=== PATIENT | male | born 1930 | race Caucasian/White ===

== ENCOUNTER 2018-07-19 12:06 | Inpatient (IN) ==
--- NOTE | 2018-07-19 07:59 | Discharge Summary ---
<Bud Parikh - Last Filed: 07/24/18 06:40> Orders not resulted at time of discharge: Pending orders 07/19/18 00:01 XR hip complete LT [XR] Routine H/H [Hemoglobin and Hematocrit] [HEME] Routine Date of Encounter: 07/24/18 - Discharge Diagnosis (1) CAD (coronary artery disease) Priority: Secondary Status: Chronic Qualifiers: Coronary Disease-Associated Artery/Lesion type: [place] artery [place] vs. transplanted heart: hamilton heart Associated angina: without angina Qualified Code(s): I25.10 - Atherosclerotic heart disease of [place] coronary artery without angina pectoris (2) COPD (chronic obstructive pulmonary disease) Priority: Secondary Status: Chronic Qualifiers: COPD type: chronic bronchitis Chronic bronchitis type: unspecified Qualified Code(s): J42 - Unspecified chronic bronchitis (3) Chronic pain Priority: Secondary Status: Chronic Qualifiers: Chronic pain type: other chronic pain Qualified Code(s): G89.29 - Other chronic pain (4) HLD (hyperlipidemia) Priority: Secondary Status: Chronic Qualifiers: Hyperlipidemia type: unspecified Qualified Code(s): E78.5 - Hyperlipidemia , unspecified (5) HTN (hypertension) Priority: Secondary Status: Chronic Qualifiers: Hypertension type: essential hypertension Qualified Code(s): I10 - Essential (primary) hypertension (6) Acute myocardial infarction Priority: Primary Status: Acute Qualifiers: Myocardial infarction type: unspecified Involved coronary artery: unspecified coronary artery Qualified Code(s): I21.9 - Acute myocardial infarction, unspecified (7) S/P coronary artery stent placement Priority: Primary Status: Acute (8) Acute respiratory failure with hypoxia Priority: Primary Status: Acute (9) Elevated troponin Priority: Primary Status: Acute (10) HCAP (healthcare-associated pneumonia) Priority: Primary Status: Acute (11) HFrEF (heart failure with reduced ejection fraction) Priority: Primary Status: Acute Qualifiers: Heart failure chronicity: acute Qualified Code(s): I50.21 - Acute systolic (congestive) heart failure (12) Moderate protein-calorie malnutrition Priority: Primary Status: Acute (13) Arthritis of left hip Priority: Primary Status: Chronic (14) Status post total hip replacement, left Priority: Primary Status: Acute - Hospital Course Hospital course: Mr. Lorenzana is a 87 year old male status post left total hip replacement. Patient 's postoperative course complicated by altered mental status, myocardial infarction.The patient underwent cardiac catheterization during this hospital stay for myocardial infarction acute. With regards to hip incision clean dry and intact. Neurovascular intact. Patient received antibiotics and physical therapy. Patient will be discharged when cleared by medical team. - Time Spent with Patient Total time spent providing and/or coordinating discharge services: - Discharge Medications Prescriptions: Enoxaparin [Lovenox] 30 mg SQ Q12HR 7 Days #14 syringe Vancomycin [Vancocin] 1,000 mg IV Q12HR 7 Days #14 vial Nodkqhiukkuw-Qhtl-Bhtzkskf,Iso [Zosyn 3.375 gm/50 ml Galaxy] 3.375 gm IV Q8H 7 Days #21 froz.piggy Tramadol HCl [Ultram] 50 mg PO QID PRN 7 Days #28 tab PRN Reason: Severe Pain Home Medications: C,E,Zinc,Copper 11/Rzlwc4d/Lut [Ocuvite Adult 50 Plus Softgel] 1 cap PO DAILY [History] Clopidogrel [Plavix] 75 mg PO DAILY 07/19/18 [History] Folic Acid/Mv,Fe,Min [Centrum Chewable Tablet] 1 tab PO DAILY 07/19/18 [History] Metoprolol XL (24 HR) Succ [Toprol Xl] 25 mg PO DAILY 07/19/18 [History] Pantoprazole Sodium 40 mg PO DAILY 07/19/18 [History] Pantoprazole Sodium [Protonix] 40 mg PO DAILY 07/19/18 [History] Acetaminophen [Tylenol] 650 mg PO Q6HR PRN tablet 07/26/18 [Rx] Ascorbic Acid [Vitamin C] 500 mg PO BIDWM tablet 07/26/18 [Rx] Enoxaparin [Lovenox] 30 mg SQ Q12HR 7 Days #14 syringe 07/26/18 [Rx] Levalbuterol Neb [Xopenex Neb] 1.25 mg IH [id number] PRN vial.neb 07/26/18 [Rx] Metoprolol XL (24 HR) Succ [Toprol Xl] 25 mg PO DAILY tab.er.24h 07/26/18 [Rx] Multivit/Ca/Min/Fe/FA [Thera M Plus] 1 tab PO DAILY tablet 07/26/18 [Rx] Lfjgwhwkxvmg-Wlvb-Glleexqk,Iso [Zosyn 3.375 gm/50 ml Galaxy] 3.375 gm IV Q8H 7 Days #21 froz.piggy 07/26/18 [Rx] Rosuvastatin [Crestor] 10 mg PO HS tablet 07/26/18 [Rx] Tramadol HCl [Ultram] 50 mg PO QID PRN 7 Days #28 tab 07/26/18 [Rx] Vancomycin [Vancocin] 1,000 mg IV Q12HR 7 Days #14 vial 07/26/18 [Rx] Allergies/Adverse Reactions: 3 Allergy/AdvReac Type Severity Reaction Status Date / Time albuterol AdvReac shortness Verified 07/08/18 12:42 of breath prednisone AdvReac shortness Verified 07/08/18 12:42 of breath Primary care physician: Michi Figueroa - Patient Status Disposition: Transfer Inpatient Rehab Fac Condition: Good Functional capacity at discharge: uses cane/walker Overall status at discharge: patient is progressing back to baseline - Discharge Instructions Follow Up With: Michi Figueroa [Primary Care Provider] - (Follow up with primary care provider ) <Angy Baig - Last Filed: 07/26/18 13:22> Orders not resulted at time of discharge: Pending orders 07/19/18 00:01 XR hip complete LT [XR] Routine H/H [Hemoglobin and Hematocrit] [HEME] Routine Date of Encounter: 07/26/18 Time of Encounter: 08:38 - Discharge Diagnosis (1) Arthritis of left hip Priority: Primary Status: Chronic (2) Status post total hip replacement, left Priority: Primary Status: Acute Comments: Opsite dressing, leave intact until first post-operative visit. If dressing becomes >50% saturated, contact office, remove dressing and place appropriate dressing in its place. Do not allow for dressing to get wet. Zipline/Proctor in place, plan to remove at post-operative day #14-16. Total Joint Precautions x 6 weeks Apply cold therapy wrap 3-6x/day for 20 minutes at a time. Encourage ambulation throughout the day Use Incentive spirometer 10x/hour. Elevate affected extremity above heart as tolerated. Brace: Wear hip abductor brace at night x 6 weeks. (3) COPD (chronic obstructive pulmonary disease) Priority: Secondary Status: Chronic Qualifiers: COPD type: chronic bronchitis Chronic bronchitis type: unspecified Qualified Code(s): J42 - Unspecified chronic bronchitis (4) HLD (hyperlipidemia) Priority: Secondary Status: Chronic Qualifiers: Hyperlipidemia type: unspecified Qualified Code(s): E78.5 - Hyperlipidemia , unspecified (5) HTN (hypertension) Priority: Secondary Status: Chronic Qualifiers: Hypertension type: essential hypertension Qualified Code(s): I10 - Essential (primary) hypertension (6) CAD (coronary artery disease) Priority: Secondary Status: Chronic Qualifiers: Coronary Disease-Associated Artery/Lesion type: [place] artery [place] vs. transplanted heart: ham[place] heart Associated angina: without angina Qualified Code(s): I25.10 - Atherosclerotic heart disease of [place] coronary artery without angina pectoris (7) Chronic pain Priority: Secondary Status: Chronic Comments: Patient takes Percocet 5/325 TID, last dose 07/25 fill. Pain management following. Qualifiers: Chronic pain type: other chronic pain Qualified Code(s): G89.29 - Other chronic pain (8) Acute blood loss anemia Priority: Secondary Status: Acute (9) Acute myocardial infarction Priority: Secondary Status: Acute Qualifiers: Myocardial infarction type: unspecified Involved coronary artery: unspecified coronary artery Qualified Code(s): I21.9 - Acute myocardial infarction, unspecified (10) Acute respiratory failure with hypoxia Priority: Secondary Status: Resolved (11) HCAP (healthcare-associated pneumonia) Priority: Secondary Status: Acute Comments: ASSESSMENT AND PLAN: HCAP. He shows excellent response to IV vancomycin/IV Zosyn. He is recovering from mild acute hypoxic respiratory failure. Elevated troponin, likely due to NSTEMI. He has underlying coronary artery disease. He had PCI with opening/stenting of left circumflex on 07/22. He is on IV heparin, Toprol-XL, Lipitor and aspirin/Plavix. He is on subcutaneous Lovenox. Heart failure with reduced ejection fraction. 35-40%. Will continue Toprol-XL. Status post total left hip replacement. See notes from orthopedics. The patient needs ECF (has been accepted). Hypertension. Under control. Toprol-XL. COPD. Clinically under control. He has moderate protein calorie malnutrition. He got supplemental nutrition. See notes from dietary. Disposition: We will insert power glide IV access. Then, we will send him to ECF with IV antibiotics for the next 4 to 5 days. (12) HFrEF (heart failure with reduced ejection fraction) Priority: Secondary Status: Acute Qualifiers: Heart failure chronicity: acute Qualified Code(s): I50.21 - Acute systolic (congestive) heart failure (13) Moderate protein-calorie malnutrition Priority: Secondary Status: Acute (14) S/P coronary artery stent placement Priority: Secondary Status: Acute - Hospital Course Hospital course: Noted that patient also developed HCAP while in house, responding well to IV antibiotics. Plan for patient to D/C today with IV ABX for 4-5 days then transition to PO antibiotics. Follow up with [facility] on . Needs PCP appt, and Cardiac appt. Signing off to hospitalist. - Time Spent with Patient Total time spent providing and/or coordinating discharge services: Date of admission: 07/19 Primary care physician: Michi Figueroa Consults: Cardiology PCP Discharging clinician: Angy Baig Anticipated date of discharge: 07/26/18 - Patient Status Functional capacity at discharge: uses cane/walker Overall status at discharge: patient is progressing back to baseline - Diet and Activity Activity: as per the cardiac rehab Diet: other (Cardiac diet)
[2018-07-19] MEDS ORDERED: Famotidine 20 MG/2 ML VIAL IVP ONE (12:46)
[2018-07-19] MEDS ORDERED: Acetaminophen IV 1,000 MG/100 ML INFUS..BTL IVPB ONE (12:48)
--- NOTE | 2018-07-19 12:49 | Anesthesia Evaluation PreOp ---
Date of Encounter: 07/19/18 Time of Encounter: 12:49 - Past History Planned Operation: Robotic L Total Hip Cardiac History: HTN, Hyperlipidemia, Pacemaker/ICD (Implanted 03/2013) Pulmonary History: Former smoker, COPD Anesthesia History: Past Anesthesia (Hernia repair x 2, CTR, B-cataracts, Prostate surgery, Cardiac stents, Back surery, R-knee surgeyr, Lumbar fusion, Skin CA excisions) Medications and Allergies Aspirin Enteric Coated [Aspirin EC] 325 mg PO BID #20 tablet.dr 07/19/18 [Rx] Oxycodone HCl/Acetaminophen [Percocet 5-325 mg Tablet] 1 each PO BID 7 Days #14 tablet 07/19/18 [Rx] 3 Allergy/AdvReac Type Severity Reaction Status Date / Time albuterol AdvReac shortness Verified 07/08/18 12:42 of breath prednisone AdvReac shortness Verified 07/08/18 12:42 of breath Anesthesia Results - Labs Laboratory Tests 07/08/18 07/08/18 07/08/18 12:55 12:55 12:55 WBC 5.4 Hgb 13.5 Hct 41.6 Plt Count 170 PT 11.6 INR 1.0 APTT 30.8 Sodium 140 Potassium 4.4 Chloride 103 Carbon Dioxide 33 H BUN 26 H Creatinine 0.87 Est GFR (Non-Af Amer) > 60 - Imaging Additional studies: ECHO 06/21/2018 EV/EV echocardiogram Impressions: LVEF 60%. Basal sigmoid septum. No LVOT obstruction. Mild left ventricular diastolic dysfunction. Normal right ventricular structure and function. Mild-moderate aortic stenosis. Moderate aortic regurgitation. Mild tricuspid regurgitation. No pulmonary hypertension by TR gradient. A device lead was visualized in the right atrium and right ventricle. Left Ventricular Wall Motion: Rest Echo Findings All wall segments showed normal motion. NUCLEAR STRESS 06/21/2018 Impression: Pharmacologic stress ECG is non-diagnostic due to demand ventricular pacing, submaximal HR. Gated EF = 67%. Medium sized, moderate intensity, primarily fixed inferolateral perfusion defect with normal wall motion. These findings are suggestive of artifact. Perfusion imaging was negative for ischemia or infarct. Anesthesia Exam O2 Sat Height 1.63 m Height 1.63 m Weight 60.328 kg Weight 60.328 kg O2 Sat by Pulse Oximetry 97 Vital Signs Temp Pulse Resp BP Pulse Ox 98.1 F 82 18 114/69 97 07/19/18 12:29 07/19/18 12:29 07/19/18 12:29 07/19/18 12:29 07/19/18 12:29 - HEENT Pupil (Motor): Pupils equal, EOMI Mallampati: II Teeth: Normal Oral Opening: Greater than 3 - DESIGNER WRITER LOC: Oriented DESIGNER WRITER Motor: Normal RUE, Normal LUE, Normal RLE, Normal LLE, Normal Face DESIGNER WRITER Sensory: Normal: RUE, LUE, RLE, LLE, Face - Cardiac Rhythm: Regular Murmur: None - Pulmonary Breath Sounds: bilateral Clear Respiratory Effort: Symmetrical Anesthesia Assess/Plan ASA Score: 3 Anes Supervising Prov Stmt: Pt seen/evaluated, R&B Discussed, questions answered and consent obtained. Beto Tai MD
[2018-07-19] MEDS ORDERED: CeFAZolin Syr 2,000MG/20 ML 2,000 MG/20 ML SYRINGE IVPB ONE (12:56)
--- NOTE | 2018-07-19 12:56 | History & Physical Report ---
Date of Encounter: 07/19/18 Time of Encounter: 12:55 24 Hour HP Update - Instructions Instructions: If the History and Physical is less than 30 days old and was completed prior to A.M. admission and or procedure and has NOT been updated on calendar day of procedure please complete this update prior to performing procedure. - Update Patient reports changes in Medical Condition: No Changes in examination, assessment, or condition: No Changes in Medication: No Preop tests/diagnostics Reviewed: Yes Surgery Remains Indicated: Yes Consent for Planned Operative Procedure(s) Verified: Yes - Pre-Operative Checklist Preoperative Checklist Indicated: No Prophylactic Antibiotic Ordered: Yes Is VTE Prophylaxis Indicated?: Yes
[2018-07-19] MEDS ORDERED: Ringers Solution, Lactated 1,000 ML IVC SCH (13:00)
[2018-07-19] MEDS ORDERED: *HR* FentaNYL (PF) 100 MCG/2 ML VIAL ONE (13:26)
[2018-07-19] MEDS ORDERED: Lidocaine -MPF 2% 2 ML VIAL ONE (13:26)
[2018-07-19] MEDS ORDERED: *HR* Propofol 200 MG/20 ML VIAL IVP ONE (13:27)
[2018-07-19] MEDS ORDERED: Levalbuterol Neb 1.25 MG/3 ML IH STA (13:29)
[2018-07-19] MEDS ORDERED: ROPIVACAINE HCL/PF 0.5% 30 ML VIAL ONE (14:26)
[2018-07-19] MEDS ORDERED: Lidocaine -MPF 2% 5 ML VIAL ONE (14:26)
--- NOTE | 2018-07-19 14:44 | Anesthesia Procedures ---
Date of Encounter: 07/19/18 Time of Encounter: 14:29 Procedures: Anesthesia - Nerve Block Procedure Date: 07/19/18 Time: 14: Surgical Procedure: total hip Checklist: Correct Patient Identifier, Correct procedure, History checked Correct side: Left Monitor Applied: BP, Pulse Oximetry Supplemental Oxygen via Nasal Cannula (L/min): 0 Indication: Post Op Analgesia Block Type: Other (fascia iliacia) Catheter placed: No Sterile Technique: Yes Ultrasound used: Yes Anatomy identified: Yes Visual spread of Local: Yes Neuro Stimulation: Yes Smooth Injection of Local: Yes Pain with Injection of Local: No Prep: Chlorhexadine Needle: 22 x 50 mm Stimuplex Local: Ropivacaine (60ml of 0.25% Rop with 8mg decadron. ) Volume (cc): 60 Number of Attempts: 1 Complications: None/effective block Vitals: vss
[2018-07-19] MEDS ORDERED: Ethanol\\Acetic Acid\\Na Ace\\Ben 1,000 ML IRRIG.SOLN IR ONE (14:48)
[2018-07-19] MEDS ORDERED: Ondansetron 4 MG/2 ML VIAL ONE (15:00)
[2018-07-19] MEDS ORDERED: Dexamethasone 4 MG/ML VIAL ONE (15:00)
[2018-07-19] MEDS ORDERED: *HR* Rocuronium Bromide 50 MG/5 ML VIAL ONE (15:00)
[2018-07-19] MEDS ORDERED: *HR* Succinylcholine 200 MG/10 ML VIAL IVP ONE (15:00)
[2018-07-19] MEDS ORDERED: *HR* Etomidate 40 MG/20 ML VIAL IVP ONE (15:02)
[2018-07-19] MEDS ORDERED: EPHEDrine 50 MG/ML VIAL ONE (15:37)
[2018-07-19] MEDS ORDERED: *HR* PHENYLEPHRINE 1,000 MCG/10 ML SYRINGE IVP ONE ×2 (15:37→16:19)
[2018-07-19] MEDS ORDERED: *HR* Morphine 10 MG/ML VIAL ONE (15:51)
[2018-07-19] MEDS ORDERED: *HR* HYDROmorphone (PF) 1 MG/ML SYRINGE IVP PRN (16:03)
--- NOTE | 2018-07-19 16:15 | Orthopedic Operative Note ---
Date of procedure: 07/19/18 Pre-op diagnosis: left hip OA Post-op diagnosis: same Procedure: Procedure: left Total Hip Replacment robotic-assisted Estimated blood loss: 200 cc Hardware: Metal and polyethylene replacement. Enrique DM Cup: 58 cup Femoral size 9 stem Head:8 head with Karyna Procedural Notes: Grade 4 arthritic changes femoral head acetabular socket, procedure performed with robotic assistance. Operative procedure: The patient was brought to the operating room and placed on the operating room table. After general anesthesia was administered the patient was placed in the lateral decubitus position with the operative leg up. All pressure points were padded appropriately and the head was stabilized in the neutral position. The operative extremity was prepped and draped in the sterile surgical fashion patient received IV antibiotic prior to skin incision. 3 Steinmann pins were placed in the iliac crest 3 cm proximal to the anterior superior iliac spine this was for the robotic-assisted sensor. This was done through a small 2 cm incision. A standard posterior approach is made to the operative hip, the incision was made through the skin and subcutaneous tissue hemostasis was obtained with Bovie cautery. Using careful sharp dissection the fascia was identified and incised exposing the external rotators. The femoral checkpoint was placed leg length was measured at this time utilizing robotic assistance. The external rotators were released off the greater trochanter and tagged with # 2 FiberWire suture. The capsule was T'd open and the hip was brought into internal rotation. Patient noted to have grade 4 arthritic changes femoral head. The femoral neck cut was made at the appropriate level roughly 15 mm proximal to the lesser trochanter aced on preoperative templating. An anterior capsulotomy was performed for the anterior retractor. Soft tissues removed from the acetabulum. Patient noted to have grade 4 arthritic changes acetabulum. The acetabulum checkpoint was placed confirmed. The acetabulum was then mapped with robotic assistance. Based on the preoperative plan the acetabulum was reamed in one step with a 57 reamer. The 58 acetabulum was impacted with robotic assistance and 42 degrees of abduction and 22 degrees of anteversion. The hip was brought back in to internal rotation and prepared with the steam box operator followed by the canal finder followed by the reaming process to a size 9/ 10 broaching process in 20 degrees anteversion. It was broached up to the appropriate size 9. Trial reduction revealed leg lengths close to normal. The femoral implant was impacted in place in 20 degrees of anteversion. Trial reduction found the hip to be stable with 8 head and Karyna. The trials were removed and the real implants were impacted in place. The hip was reduced, patient had robotic confirmed leg length of 8 mm longer than the contralateral side. The hip had excellent stability with forward flexion to 90 degrees adduction of 30 degrees and internal rotation of 60 degrees. The hip had no shuck. The hips after 2 minutes with a Betadine saline solution. It was irrigated out with 2 L of pulse irrigation. The checkpoints were removed, Steinmann pins were removed. The hip was closed by the PA. The deep tissue was irrigated and closed deep with #1 PDS suture superficially with 0 PDS suture and skin was closed with Dermabond and zip tie. The patient was placed in a sterile dressing and abduction pillow. The patient was extubated and transferred to the recovery room in stable condition. Anesthesia: RADHA Surgeon: Bud Parikh Was there an clinical education assistant present: Yes Homoeopath: Angy Baig Estimated blood loss (cc): 200 Condition: stable Disposition: PACU
--- NOTE | 2018-07-19 17:15 | Anesthesia Evaluation Post Op ---
Date of Encounter: 07/19/18 Time of Encounter: 17:14 - Vital Signs Vital Signs: vss - Lungs Lungs: Clear Ascult./Percussion - Airway Airway: Non-obstructed - Cardiovascular Baseline Rhythm - Mental Status Mental Status: Alert & Oriented, Answers Appropriately - Pain Pain Scale: 0 Pain Scale used: Numeric (1 - 10) - Nausea Vomiting Nausea Vomiting: Not Present - Hydration Hydration: Ice chips - Discharge PostOp Status: Transfer Patient to floor
[2018-07-19] MEDS ORDERED: *HR* Enoxaparin 30 MG/0.3 ML SYRINGE SQ SCH (18:00)
[2018-07-19 18:08] LABS: Hematocrit 39.8 % (37.5-50.1); Hemoglobin 12.8 g/dL (12.9-16.9)
--- NOTE | 2018-07-19 18:30 | Physician Discharge Referral ---
Home Health/Hosp Referral Info Transfer to: Home Health Attending Provider: Provider in Charge Post Discharge: PCP - Diagnosis (1) Arthritis of left hip Priority: Primary Status: Acute (2) Status post total hip replacement, left Priority: Primary Status: Acute (3) COPD (chronic obstructive pulmonary disease) Status: Chronic (4) HLD (hyperlipidemia) Status: Chronic (5) HTN (hypertension) Status: Chronic (6) CAD (coronary artery disease) Status: Chronic (7) Chronic pain Status: Chronic - Respiratory Orders None Smoking Cessation: Smoking cessation has been advised. For more information, call the [place] Tobacco Quit Line at 3-733-TVHL-NOW. - Diet/Nutrition Diet/Nutrition Orders: Regular - Activity Activity Orders: Up ad rosalva, Ambulate, Chair, Walker - Services Needed Following services are medically necessary services: Nursing, Home Health Aide, Physical Therapy, Occupational Therapy Home Care Orders: Opsite dressing, leave intact until first post-operative visit. If dressing becomes >50% saturated, contact office, remove dressing and place appropriate dressing in its place. Do not allow for dressing to get wet. Zipline in place, plan to remove at post-operative day #14-16. Total Joint Precautions x 6 weeks Apply cold therapy wrap 3-6x/day for 20 minutes at a time. Encourage ambulation throughout the day Use Incentive spirometer 10x/hour. Elevate affected extremity above heart as tolerated. Brace: Wear hip abductor brace at night x 6 weeks. - Transfer Medications Home Medications: C,E,Zinc,Copper 11/Feqed3p/Lut [Ocuvite Adult 50 Plus Softgel] 1 cap PO DAILY [History] Clopidogrel [Plavix] 75 mg PO DAILY 07/19/18 [History] Folic Acid/Mv,Fe,Min [Centrum Chewable Tablet] 1 tab PO DAILY 07/19/18 [History] Metoprolol XL (24 HR) Succ [Toprol Xl] 25 mg PO DAILY 07/19/18 [History] OxyCODONE/APAP 5/325 [Percocet 5/325 MG] 1 tab PO TID PRN 07/19/18 [History] Pantoprazole Sodium [Pantoprazole Sodium] 40 mg PO DAILY 07/19/18 [History] Pantoprazole Sodium [Protonix] 40 mg PO DAILY 07/19/18 [History] Sulfamethoxazole/Trimeth DS [Bactrim DS] 1 tab PO DAILY 07/19/18 [History] Allergies/Adverse Reactions: 3 Allergy/AdvReac Type Severity Reaction Status Date / Time albuterol AdvReac shortness Verified 07/08/18 12:42 of breath prednisone AdvReac shortness Verified 07/08/18 12:42 of breath Certification: Further, I certify that my clinical findings support that this patient is homebound (i.e. absences from home require considerable and taxing effort and are for medical reasons or catholic services or infrequently or short duration when for other reasons) because: Homebound Reason: Post-surgery restriction and or conditions limit ability to leave home Attestation: My signature below is to certify that this patient is under my care and that I, or nurse practitioner, or a physician's kindergarten instructional assistant working with me, has a face-to -face encounter with this patient.
[2018-07-19] MEDS ORDERED: *HR* OxyCODONE/APAP 5/325 TABLET PO PRN (18:36)
[2018-07-19] MEDS ORDERED: MOM Conc 10 ML UD.LIQ PO PRN (18:36)
[2018-07-19] MEDS ORDERED: Temazepam 15 MG CAPSULE PO PRN (18:36)
[2018-07-19] MEDS ORDERED: Ondansetron 4 MG/2 ML VIAL IVP PRN (18:36)
[2018-07-19] MEDS ORDERED: Sennosides 8.6 MG TABLET PO PRN (18:36)
[2018-07-19] MEDS ORDERED: *HR* OxyCODONE Immed Rel 5 MG TABLET PO PRN (18:36)
[2018-07-19] MEDS ORDERED: Naloxone 0.4 MG/ML INJ IVP PRN (18:36)
[2018-07-19] MEDS: Ascorbic Acid 500 MG TABLET PO SCH (20:21)
[2018-07-19] MEDS: Ringers Solution, Lactated 1,000 ML IVC SCH (20:28)
[2018-07-20 01:19] LABS: Hematocrit 37.9 % (37.5-50.1); Hemoglobin 12.4 g/dL (12.9-16.9)
[2018-07-20 01:41] LABS: BUN/Creatinine Ratio 29 (6-26); Blood Urea Nitrogen 27 mg/dL (8-23); Calcium 8.4 mg/dL (8.6-10.3); Carbon Dioxide 27 mEq/L (23-29); Chloride 102 mEq/L (98-107); Glucose 155 mg/dL (70-105); Osmolality,Calculated 288 (280-300); Potassium 5.1 mEq/L (3.5-5.1); Sodium 135 mEq/L (136-145); eGFR For Non-African Americans > 60 (> 60)
[2018-07-20] MEDS: *HR* Enoxaparin 30 MG/0.3 ML SYRINGE SQ SCH ×2 (05:06→20:14)
--- NOTE | 2018-07-20 08:16 | Orthopedics Progress Note ---
Date of Encounter: 07/20/18 Time of Encounter: 08:16 - Assessment and Plan (1) CAD (coronary artery disease) Current Visit: No Status: Chronic Qualifiers: Coronary Disease-Associated Artery/Lesion type: [place] artery [place] vs. transplanted heart: [place] heart Associated angina: without angina Qualified Code(s): I25.10 - Atherosclerotic heart disease of [place] coronary artery without angina pectoris (2) COPD (chronic obstructive pulmonary disease) Current Visit: No Status: Chronic Qualifiers: COPD type: chronic bronchitis Chronic bronchitis type: unspecified Qualified Code(s): J42 - Unspecified chronic bronchitis (3) Chronic pain Current Visit: No Status: Chronic Qualifiers: Chronic pain type: other chronic pain Qualified Code(s): G89.29 - Other chronic pain (4) HLD (hyperlipidemia) Current Visit: No Status: Chronic Qualifiers: Hyperlipidemia type: unspecified Qualified Code(s): E78.5 - Hyperlipidemia , unspecified (5) HTN (hypertension) Current Visit: No Status: Chronic Qualifiers: Hypertension type: essential hypertension Qualified Code(s): I10 - Essential (primary) hypertension Subjective Interval history: Patient was seen this morning doing well without complaints. Afebrile vital signs stable. Operative extremity: Neurovascularly intact Dressing clean dry and intact Calves nontender Assessment and plan: Continue with postoperative care Hematocrit 37 Objective Vital signs: Vital Signs Temp Pulse Resp BP Pulse Ox 07/20/18 06:50 98.4 F 91 16 100/60 92 07/20/18 05:02 99.6 F 99 16 100/64 91 07/19/18 22:50 98.7 F 75 15 107/55 95 07/19/18 21:50 98.5 F 70 16 103/50 95 07/19/18 21:23 98.7 F 71 16 101/52 92 07/19/18 20:20 93 07/19/18 19:00 97.6 F 93 115/72 92 07/19/18 18:20 98.1 F 79 106/68 94 07/19/18 17:57 97.4 F L 79 16 99/61 94 07/19/18 17:18 98.0 F 80 20 102/64 92 07/19/18 17:08 98.0 F 80 20 110/62 92 07/19/18 16:58 85 20 108/64 92 07/19/18 16:48 84 20 108/66 96 07/19/18 16:38 98.7 F 84 20 98/73 96 07/19/18 14:55 88 15 109/68 100 07/19/18 14:38 76 16 102/65 95 07/19/18 14:22 82 15 103/76 98 07/19/18 14:01 18 114/69 97 07/19/18 12:29 98.1 F 82 18 114/69 97 Intake and Output 07/19/18 07/20/18 07/20/18 23:59 07:59 15:59 Intake Total 100 / 100 100 / 100 Output Total 400 / 400 Balance -300 / -300 100 / 100 Intake: IV Fluids 100 / 100 100 / 100 Ancef 2,000 MG In 0.9 % Sodium 100 / 100 100 / 100 Chloride 100 ML @ 200 mls/hr IVPB Q8HR SOLIS Rx#:[id number] Output: Urine 200 / 200 Estimated Blood Loss 200 / 200 Other: # Voids 1 - Labs CBC & BMP: 07/20/18 00:47 07/20/18 00:47 Labs: Abnormal lab results Hgb 12.4 g/dL (12.9-16.9) L 07/20/18 00:47 Sodium 135 mEq/L (136-145) L 07/20/18 00:47 BUN 27 mg/dL (8-23) H 07/20/18 00:47 BUN/Creatinine Ratio 29 (6-26) H 07/20/18 00:47 Glucose 155 mg/dL (70-105) H 07/20/18 00:47 Calcium 8.4 mg/dL (8.6-10.3) L 07/20/18 00:47 - VTE Documentation of Mechanical Device: Venous foot pump, device Consult Discharge Plan - Plan Referrals: Michi Figueroa [Primary Care Provider] -
[2018-07-20] MEDS ORDERED: [UNRECOGNIZED DRUG - OTHER] PO SCH (09:00)
[2018-07-20] MEDS ORDERED: NON-FORMULARY MEDICATION 1 EACH EACH (C,E,Zinc,Copper 11/Omega3s/Lut [Ocuvite Adult 50 Plu PO SCH (09:00)
[2018-07-20] MEDS ORDERED: BACTRIM SS PO SCH (09:00)
[2018-07-20] MEDS ORDERED: MULTIVITAMIN PO SCH (09:00)
[2018-07-20] MEDS: Multivit/Ca/Min/Fe/FA 1 TAB TABLET PO SCH (10:10)
[2018-07-20] MEDS: Ascorbic Acid 500 MG TABLET PO SCH ×2 (10:10→18:14)
[2018-07-20] MEDS ORDERED: 0.9 % Sodium Chloride 500 ML IVC ONE (10:47)
[2018-07-20] MEDS: Metoprolol XL (24 HR) Succ 25 MG TAB.ER.24H PO SCH (10:48)
[2018-07-20] MEDS ORDERED: *HR* LORazepam 2 MG/ML VIAL IVP ONE (14:25)
--- NOTE | 2018-07-20 21:13 | Event Note ---
Date of Encounter: 07/20/18 Time of Encounter: 21:05 PCR - POD#1 - Right THR 07/19. Patient seen at bedside, agitated and refusing to stay in bed. Overnight confusion. Pain medication being monitored Afebrile, vital signs stable. Labs reviewed. H/H - stable, asymptomatic Pain control: adequate Participating in PT. All questions and concerns addressed. Educated on use of incentive spirometer. Encouraged ambulation and proper hydration. Patient educated on post-operative restrictions and post-operative care. Assessment and plan: Continue with postoperative care - Ativan 0.5mg given for agitation -Patient later became more increasingly weak with what appeared to be left side - STAT CT of head obtained to assess for abnormality - no acute deformity noted Discharge plan: ECF - once confusion improved
--- NOTE | 2018-07-20 21:16 | Physician Discharge Referral ---
<Bud Parikh - Last Filed: 07/22/18 07:53> [facility] Referral Info Provider in Charge after Transfer: PCP - Diagnosis (1) CAD (coronary artery disease) Status: Chronic (2) COPD (chronic obstructive pulmonary disease) Status: Chronic (3) Chronic pain Status: Chronic (4) HLD (hyperlipidemia) Status: Chronic (5) HTN (hypertension) Status: Chronic - Transfer Medications Prescriptions: Enoxaparin [Lovenox] 30 mg SQ Q12HR 7 Days #14 syringe Vancomycin [Vancocin] 1,000 mg IV Q12HR 7 Days #14 vial Ugnvovcesueg-Sunz-Qimcjxoy,Iso [Zosyn 3.375 gm/50 ml Galaxy] 3.375 gm IV Q8H 7 Days #21 froz.piggy Tramadol HCl [Ultram] 50 mg PO QID PRN 7 Days #28 tab PRN Reason: Severe Pain Home Medications: C,E,Zinc,Copper 11/Bzcqe2k/Lut [Ocuvite Adult 50 Plus Softgel] 1 cap PO DAILY [History] Clopidogrel [Plavix] 75 mg PO DAILY 07/19/18 [History] Folic Acid/Mv,Fe,Min [Centrum Chewable Tablet] 1 tab PO DAILY 07/19/18 [History] Metoprolol XL (24 HR) Succ [Toprol Xl] 25 mg PO DAILY 07/19/18 [History] Pantoprazole Sodium 40 mg PO DAILY 07/19/18 [History] Pantoprazole Sodium [Protonix] 40 mg PO DAILY 07/19/18 [History] Acetaminophen [Tylenol] 650 mg PO Q6HR PRN tablet 07/26/18 [Rx] Ascorbic Acid [Vitamin C] 500 mg PO BIDWM tablet 07/26/18 [Rx] Enoxaparin [Lovenox] 30 mg SQ Q12HR 7 Days #14 syringe 07/26/18 [Rx] Levalbuterol Neb [Xopenex Neb] 1.25 mg IH [id number] PRN vial.neb 07/26/18 [Rx] Metoprolol XL (24 HR) Succ [Toprol Xl] 25 mg PO DAILY tab.er.24h 07/26/18 [Rx] Multivit/Ca/Min/Fe/FA [Thera M Plus] 1 tab PO DAILY tablet 07/26/18 [Rx] Zzyqjamzocri-Ucly-Mnjsbvbm,Iso [Zosyn 3.375 gm/50 ml Galaxy] 3.375 gm IV Q8H 7 Days #21 froz.piggy 07/26/18 [Rx] Rosuvastatin [Crestor] 10 mg PO HS tablet 07/26/18 [Rx] Tramadol HCl [Ultram] 50 mg PO QID PRN 7 Days #28 tab 07/26/18 [Rx] Vancomycin [Vancocin] 1,000 mg IV Q12HR 7 Days #14 vial 07/26/18 [Rx] Allergies/Adverse Reactions: 3 Allergy/AdvReac Type Severity Reaction Status Date / Time albuterol AdvReac shortness Verified 07/08/18 12:42 of breath prednisone AdvReac shortness Verified 07/08/18 12:42 of breath - Respiratory Orders Smoking Cessation: Smoking cessation has been advised. For more information, call the [employer] Quit Line at 0-278-PSPG-NOW. CERTIFICATION: I certify that the transfer of the above named patient to an Extended Care Facility is necessary for the continuing treatment of the diagnosis listed. The above information is true and accurate reflection of patient's current condition. Confidential - Redisclosure prohibited without a patient's written consent. <Angy Baig L - Last Filed: 07/26/18 13:21> ExtendedCare Referral Info Transfer To: [facility] Provider in Charge: Provider in Charge after Transfer: PCP Institutional Level of Care: Skilled - Diagnosis (1) Arthritis of left hip Priority: Primary Status: Chronic (2) Status post total hip replacement, left Priority: Primary Status: Acute (3) COPD (chronic obstructive pulmonary disease) Priority: Secondary Status: Chronic (4) HLD (hyperlipidemia) Priority: Secondary Status: Chronic (5) HTN (hypertension) Priority: Secondary Status: Chronic (6) CAD (coronary artery disease) Priority: Secondary Status: Chronic (7) Chronic pain Priority: Secondary Status: Chronic (8) Acute blood loss anemia Status: Acute (9) Acute myocardial infarction Priority: Secondary Status: Acute (10) Elevated troponin Priority: Secondary Status: Acute (11) HCAP (healthcare-associated pneumonia) Priority: Secondary Status: Acute (12) HFrEF (heart failure with reduced ejection fraction) Priority: Secondary Status: Acute (13) Moderate protein-calorie malnutrition Priority: Secondary Status: Acute (14) S/P coronary artery stent placement Priority: Secondary Status: Acute (15) Acute respiratory failure with hypoxia Priority: Secondary Status: Resolved Expected Duration of Placement: < 30 days Prognosis: Good Aware of Diagnosis: Patient Aware of Prognosis: Patient - Respiratory Orders None Smoking Cessation: Smoking cessation has been advised. For more information, call the [employer] Quit Line at 0-534-CUOM-NOW. - Lab Orders Lab Orders: Other (include drug levels w/frequency) (Weekly Vancomycin Kinetics PICC line assessment daily CBC, LFTS and BMP weekly) - Mobility Orders Chair, Ambulate - Rehabiliation Orders Rehab Potential: Good Rehab Orders: ROM Exercises, Evaluation for Physical Therapy (CARDIAC REHAB), Evaluation for Occupational Therapy - Treatments Skin tear care topically daily PRN per policy, May check for fecal impaction rectally daily PRN List/Other: Opsite dressing, leave intact until first post-operative visit. If dressing becomes >50% saturated, contact office, remove dressing and place appropriate dressing in its place. Do not allow for dressing to get wet. Zipline in place, plan to remove at post-operative day #14-16. Total Joint Precautions x 6 weeks Apply cold therapy wrap 3-6x/day for 20 minutes at a time. Encourage ambulation throughout the day Use Incentive spirometer 10x/hour. Elevate affected extremity above heart as tolerated. Brace: Wear hip abductor brace at night x 6 week ASSESSMENT AND PLAN: HCAP. He shows excellent response to IV vancomycin/IV Zosyn. He is recovering from mild acute hypoxic respiratory failure. Elevated troponin, likely due to NSTEMI. He has underlying coronary artery disease. He had PCI with opening/stenting of left circumflex on 07/22. He is on IV heparin, Toprol-XL, Lipitor and aspirin/Plavix. He is on subcutaneous Lovenox. Heart failure with reduced ejection fraction. 35-40%. Will continue Toprol-XL. Status post total left hip replacement. See notes from orthopedics. The patient needs ECF (has been accepted). Hypertension. Under control. Toprol-XL. COPD. Clinically under control. He has moderate protein calorie malnutrition. He got supplemental nutrition. See notes from dietary. Disposition: We will insert power glide IV access. Then, we will send him to ECF with IV antibiotics until 08/02 - RX printed. - Diet Orders Regular CERTIFICATION: I certify that the transfer of the above named patient to an Extended Care Facility is necessary for the continuing treatment of the diagnosis listed. The above information is true and accurate reflection of patient's current condition. Confidential - Redisclosure prohibited without a patient's written consent.
[2018-07-20] MEDS: Ringers Solution, Lactated 1,000 ML IVC SCH (21:37)
[2018-07-20 22:05] LABS: Basophils % 0.3 %; Hematocrit 30.8 % (37.5-50.1); Immature Granulocytes % 0.4 % (0-4); Lymphocytes # 1.2 K/mcL (0.6-4.6); Lymphocytes % 13.4 %; Mean Corpuscular HGB Conc 32.8 g/dL (31.6-35.5); Mean Corpuscular Hemoglobin 31.6 pg (28.0-33.3); Mean Corpuscular Volume 96.3 fL (83.0-100.0); Mean Platelet Volume 12.3 fL (9.4-12.4); Monocytes # 0.8 K/mcL (0.0-1.3); Monocytes % 8.7 %; Neutrophils # 6.9 K/mcL (1.6-8.9); Platelet Count 116 K/mcL (140-400); Red Cell Distribution Width 12.8 % (11.5-14.5); Segmented Neutrophils % 77.2 %
[2018-07-20 22:07] LABS: Hemoglobin 10.1 g/dL (12.9-16.9)
--- NOTE | 2018-07-20 22:17 | Event Note ---
Date of Encounter: 07/20/18 Time of Encounter: 20:30 Alerted by pts. nurse Grace RN that pt. had started having behavioral sx at approximately 16:45 w/bilateral weakness, garbled speech, and mentation changes. According to nurse's note at 16:45, patient was not able to answer orientation questions, was mumbling, and did not recognize words. Handgrips weak bilaterally. Dr. Parikh and ABELINO Granados were made aware of the situation and CT of the head/brain was ordered which showed no acute intracranial abnormality and diffuse atrophic changes with findings suggesting chronic microvascular ischemia. It was determined that Mr. Lorenzana has a [employer] normal dual chamber pacemaker that was installed in March 2013. I called MRI and spoke w/Bulmaro regarding compatibility. He began investigating and found that patient's pacemaker is MRI unsafe and cannot have MRI anywhere with this device implanted. Went to see pt. who was laying in bed. Pt. did not understand words and had no outreach analyst bilaterally. Pt. had received Ativan at 14:55 d/t agitation. Son was present in room and I discussed the possibility of the pt. having had a CVA or TIA, however we were unable to do an MRI for further w/u d/t pacemaker type. Son expressed understanding. I then explained that I would be placing orders for a stroke protocol w/timed neurologic checks, padding to bed rails, NPO until dysphagia screen was passed, NIHSS Modified scale, aspiration precautions, bed rest, a stat EKG, cardiac monitoring, stat troponin, CXR, and a U/A w/reflex culture and micro to r/o a UTI. Pts. son stated that the pt. had been less talkative today and most likely tired. I explained to the son that the pt. was receiving SQ Lovenox BID for protection from blood clots. Continued to assess pt. who was not able to follow commands. I asked the pts. son about the pts. Code Status and he replied that he believed it was DNR. I spoke with the pts. nurse Grace RN and instructed her to call the pts. and verify Code Status as his son stated that was the only person who would know. Nurse verified with the that the pt. is FULL CODE and this should include chest compressions, CPR, and intubation if needed. Will continue to monitor the pt. closely overnight for improvement/decline in mentation/neurologic status. Son was at bedside during my assessment and exam and plan of care was discussed fully w/pts. son who expressed understanding and agreement.
[2018-07-20 22:22] LABS: Alanine Aminotransferase 14 Units/L (7-52); Albumin/Globulin Ratio 1.5 (1.1-2.2); Alkaline Phosphatase 44 Units/L (34-104); Aspartate Amino Transferase 118 Units/L (13-39); BUN/Creatinine Ratio 35 (6-26); Bilirubin,Total 0.4 mg/dL (0.3-1.0); Blood Urea Nitrogen 31 mg/dL (8-23); Calcium 8.3 mg/dL (8.6-10.3); Carbon Dioxide 25 mEq/L (23-29); Chloride 103 mEq/L (98-107); Glucose 146 mg/dL (70-105); Osmolality,Calculated 287 (280-300); Potassium 4.3 mEq/L (3.5-5.1); Sodium 134 mEq/L (136-145); eGFR For Non-African Americans > 60 (> 60)
[2018-07-20 22:45] LABS: INR 1.4; Prothrombin Time 15.9 Seconds (9.4-12.1)
[2018-07-21] MEDS: Acetaminophen IV 1,000 MG/100 ML INFUS..BTL IVPB SCH ×2 (00:16→06:16)
[2018-07-21 00:22] LABS: Bilirubin,Urine Negative (Negative); Blood,Urine Negative (Negative); Clarity,Urine Clear (Clear); Color,Urine Yellow (Yellow); Glucose,Urine (UA) Normal (Normal); Ketones,Urine Trace mg/dL (Negative); Leukocyte Esterase,Urine Trace (Negative); Nitrite,Urine Negative (Negative); PH,Urine 5.5 pH Units (5.0-8.0); Protein,Urine Trace mg/dL (Neg-Trace); Specific Gravity,Urine 1.019 (1.010-1.025); Urobilinogen,Urine Normal (Normal)
[2018-07-21 00:24] LABS: Bacteria,Urine None Seen per hpf (None-Few); Hyaline Casts,Urine None Seen per lpf (None-Few); Squamous Epithelial Cell,Urine Many per lpf (None-Few)
[2018-07-21 00:32] LABS: Hematocrit 30.8 % (37.5-50.1); Hemoglobin 10.3 g/dL (12.9-16.9)
[2018-07-21 00:50] LABS: BUN/Creatinine Ratio 34 (6-26); Blood Urea Nitrogen 30 mg/dL (8-23); Calcium 8.3 mg/dL (8.6-10.3); Carbon Dioxide 26 mEq/L (23-29); Chloride 102 mEq/L (98-107); Glucose 137 mg/dL (70-105); Osmolality,Calculated 284 (280-300); Potassium 4.2 mEq/L (3.5-5.1); Sodium 133 mEq/L (136-145); eGFR For Non-African Americans > 60 (> 60)
--- NOTE | 2018-07-21 06:51 | Orthopedics Progress Note ---
Date of Encounter: 07/21/18 Time of Encounter: 06:49 - Assessment and Plan (1) CAD (coronary artery disease) Current Visit: No Status: Chronic Qualifiers: Coronary Disease-Associated Artery/Lesion type: [place] artery [place] vs. transplanted heart: [place] heart Associated angina: without angina Qualified Code(s): I25.10 - Atherosclerotic heart disease of [place] coronary artery without angina pectoris (2) COPD (chronic obstructive pulmonary disease) Current Visit: No Status: Chronic Qualifiers: COPD type: chronic bronchitis Chronic bronchitis type: unspecified Qualified Code(s): J42 - Unspecified chronic bronchitis (3) Chronic pain Current Visit: No Status: Chronic Qualifiers: Chronic pain type: other chronic pain Qualified Code(s): G89.29 - Other chronic pain (4) HLD (hyperlipidemia) Current Visit: No Status: Chronic Qualifiers: Hyperlipidemia type: unspecified Qualified Code(s): E78.5 - Hyperlipidemia , unspecified (5) HTN (hypertension) Current Visit: No Status: Chronic Qualifiers: Hypertension type: essential hypertension Qualified Code(s): I10 - Essential (primary) hypertension Subjective Interval history: Patient seen this morning reported by nurse to be doing much better with full recovery of strength and no signs of weakness or facial droop. Patient received 1 g of Ofirmev before I went in to see him and he was completely knocked out. Patient did receive Ativan yesterday which may be the cause of his issues. Patient CT scan was negative awaiting evaluation by cardiology. Family is in the room agreed with a full recovery before the Ofirmev. Patient will be reevaluated at the medication wears off also to be reevaluated by cardiology. Would consider holding CT scan until medication wears off Objective Vital signs: Vital Signs Temp Pulse Resp BP Pulse Ox 07/21/18 06:25 97.9 F 95 18 105/62 98 07/21/18 06:03 98.3 F 96 16 93/62 07/21/18 03:52 98.2 F 101 18 102/65 94 07/21/18 02:17 97.5 F L 106 16 94/64 07/20/18 22:20 99.2 F 105 20 111/60 07/20/18 21:28 99.7 F H 95 18 95/56 95 07/20/18 11:43 98.2 F 106 18 99/60 91 07/20/18 06:50 98.4 F 91 16 100/60 92 Intake and Output 07/20/18 07/20/18 07/21/18 15:59 23:59 07:59 Intake Total 1600 / 1600 100 / 100 Output Total 200 / 200 850 / 850 Balance 1400 / 1400 -750 / -750 Intake: IV Fluids 1000 / 1000 100 / 100 Lactated Ringers 1,000 ML @ 75 1000 / 1000 mls/hr IVC .[id number] [facility] Rx#: [id number] Ofirmev 1,000 mg/100 ml 1,000 100 / 100 mg In 100 ml @ 400 mls/hr IVPB Q6HR SOLIS Rx#:[id number] Oral 600 / 600 Output: Urine 200 / 200 Catheter 850 / 850 Other: Meal Lunch Percent of Meal Consumed 100% # Urine Diapers 1 Weight 71.4 kg Patient Weight 07/21/18 23:59 Weight 71.4 kg - Labs CBC & BMP: 07/21/18 00:21 07/21/18 00:21 Labs: Abnormal lab results RBC 3.20 M/mcL (4.19-5.50) L 07/20/18 21:37 Hgb 10.3 g/dL (12.9-16.9) L 07/21/18 00:21 Hct 30.8 % (37.5-50.1) L 07/21/18 00:21 Plt Count 116 K/mcL (140-400) L 07/20/18 21:37 PT 15.9 Seconds (9.4-12.1) H 07/20/18 22:27 Sodium 133 mEq/L (136-145) L 07/21/18 00:21 BUN 30 mg/dL (8-23) H 07/21/18 00:21 BUN/Creatinine Ratio 34 (6-26) H 07/21/18 00:21 Glucose 137 mg/dL (70-105) H 07/21/18 00:21 Calcium 8.3 mg/dL (8.6-10.3) L 07/21/18 00:21 AST 118 Units/L (13-39) H 07/20/18 21:37 Troponin I 35.36 ng/mL (< 0.04) H* 07/21/18 00:21 Serum Total Protein 5.0 g/dL (6.4-8.9) L 07/20/18 21:37 Albumin 3.0 g/dL (3.5-5.7) L 07/20/18 21:37 Globulin 2.0 g/dL (2.4-3.5) L 07/20/18 21:37 Urine Ketones Trace mg/dL (Negative) H 07/20/18 23:10 Ur Leukocyte Esterase Trace (Negative) H 07/20/18 23:10 Urine Microscopic RBC 5-15 per hpf (0-3) H 07/20/18 23:10 Urine Microscopic WBC 3-5 per hpf (0-3) H 07/20/18 23:10 Ur Squamous Epith Cells Many per lpf (None-Few) H 07/20/18 23:10 Ur Culture Indicated? NO. (NO) A 07/20/18 23:10 - VTE Documentation of Mechanical Device: Venous foot pump, device Consult Discharge Plan - Plan Referrals: Michi Figueroa [Primary Care Provider] -
[2018-07-21] MEDS: Metoprolol XL (24 HR) Succ 25 MG TAB.ER.24H PO SCH (08:00)
[2018-07-21] MEDS: Multivit/Ca/Min/Fe/FA 1 TAB TABLET PO SCH (08:00)
[2018-07-21] MEDS: Ascorbic Acid 500 MG TABLET PO SCH ×2 (08:00→17:12)
--- NOTE | 2018-07-21 09:16 | Cardiology Consult Note ---
Date of Encounter: 07/21/18 Time of Encounter: 09:12 Assessment and Plan (1) Elevated troponin Current Visit: Yes Status: Acute peak 35, flat, no dynamic ecg change, no angina or CHF DDx: [place] vs ACS P: TTE for EF, RWMA Per primary team, no heparin drip due to concern for CVA and recent surgery c/w plavix, toprol recommend switch prilosec to protonix (2) Status post total hip replacement, left Current Visit: No Status: Acute (3) HTN (hypertension) Current Visit: No Status: Chronic BP ok Qualifiers: Hypertension type: essential hypertension Qualified Code(s): I10 - Essential (primary) hypertension (4) CAD (coronary artery disease) Current Visit: No Status: Chronic no angina, nl nuclear stress pre-op currently trop + DDx: [place] vs ACS P: TTE for EF, RWMA Per primary team, no heparin drip due to concern for CVA and recent surgery c/w plavix, toprol Qualifiers: Coronary Disease-Associated Artery/Lesion type: [place] artery [place] vs. transplanted heart: [place] heart Associated angina: without angina Qualified Code(s): I25.10 - Atherosclerotic heart disease of [place] coronary artery without angina pectoris Discussion w patient/family: The assessment and plan as outlined above was discussed with the patient and/or family members who expressed understanding and agreement. All questions were answered. Thank you for involving us in the care of your patient. Please call with any questions. History of Present Illness Consult date: 07/21/18 Requesting physician: Bud Parikh Consult reason: elevated troponin Chief complaint: hip fracture postop History of present illness: Mr. Lorenzana is a 87 year old male ho hypertension hyperlipidemia COPD, coronary artery disease status post-PCI in the past with a preserved ejection fraction and mild to moderate aortic regurg, PPM, 07/19/18 L-THR. 07/20 agitation, suspect CVA with neg head CT CXR atelectasis vs PNA 07/20 night trop checked per stroke protocol 34, repeated 35. no heparin due to concern for CVA and recent surgery. Pt has mild headache, no cp, palpitations, or dyspnea. ECG sinus, pac, V pacing, no dynamic change Tele no VT on home plavix, toprol 25 PPM StJude check: DDDR, AP 48% LITIGATION SECRETARY 40%, no Afib/vt 06/22/18 Pharm nuclear neg for ischemia or infarct. EF 67% 06/21/18 TTE Impressions: LVEF 60%. Basal sigmoid septum. No LVOT obstruction. Mild left ventricular diastolic dysfunction. Normal right ventricular structure and function. Mild-moderate aortic stenosis. Moderate aortic regurgitation. Mild tricuspid regurgitation. No pulmonary hypertension by TR gradient. A device lead was visualized in the right atrium and right ventricle. Past Med Surg Social Fam HX - Past Medical History Medical history: COPD, hyperlipidemia, hypertension Additional medical history: pacemaker, irregular heart beat, emprysema, anemia, urethral stricture, gross hematuria, sob, ca, bronchitis - Past Surgical History Additional surgical history: cardiac cath, hernia repair x2, carpal tunnel, catact bilateral, prostate sx, pace,ysabel, right knee - Social History Smoking Status: Never smoker Drug use: none Medications and Allergies C,E,Zinc,Copper 11/Qeagb9c/Lut [Ocuvite Adult 50 Plus Softgel] 1 cap PO DAILY [History] Clopidogrel [Plavix] 75 mg PO DAILY 07/19/18 [History] Folic Acid/Mv,Fe,Min [Centrum Chewable Tablet] 1 tab PO DAILY 07/19/18 [History] Metoprolol XL (24 HR) Succ [Toprol Xl] 25 mg PO DAILY 07/19/18 [History] OxyCODONE/APAP 5/325 [Percocet 5/325 MG] 1 tab PO TID PRN 07/19/18 [History] Pantoprazole Sodium [Pantoprazole Sodium] 40 mg PO DAILY 07/19/18 [History] Pantoprazole Sodium [Protonix] 40 mg PO DAILY 07/19/18 [History] 3 Allergy/AdvReac Type Severity Reaction Status Date / Time albuterol AdvReac shortness Verified 07/08/18 12:42 of breath prednisone AdvReac shortness Verified 07/08/18 12:42 of breath All Systems Review: The remainder of the systems were reviewed and are negative - Cardiovascular Cardiovascular: as per HPI - Respiratory Respiratory: dyspnea - Psychiatric Psychiatric: other (agitation) Physical Examination Vital Signs, Last 4 Hours Temp Pulse Resp BP Pulse Ox 07/21/18 06:25 97.9 F 95 18 105/62 98 07/21/18 06:03 98.3 F 96 16 93/62 Other: General: NAD, AAO, cogent HEENT: anicteric Neck: no JVD, no bruits Chest: CTA B/L, no W/R/C Heart: RR, S1/S2, no S3/S4, 2/6 SM LSB, no G/R Abdominal: BS +, soft, ND, NT Peripheral Pulses: radial pulse 2+ B/L, DP 2+ B/L Skin/Extremities: no cyanosis, no LE edema, L-hip post-surgical w/o site bleeding Neurological: no tongue deviation, B/L UE motor 5/5. Results 07/21/18 00:21 07/21/18 00:21 Lab Results 07/20/18 07/20/18 07/20/18 21:37 21:37 22:27 WBC 8.9 Hgb 10.1 L D Hct 30.8 L Plt Count 116 L INR 1.4 Sodium 134 L Potassium 4.3 Chloride 103 Carbon Dioxide 25 BUN 31 H Creatinine 0.89 Glucose 146 H Calcium 8.3 L Total Bilirubin 0.4 AST 118 H ALT 14 Alkaline Phosphatase 44 Troponin I 07/20/18 07/21/18 07/21/18 22:27 00:21 00:21 WBC Hgb 10.3 L Hct 30.8 L Plt Count INR Sodium 133 L Potassium 4.2 Chloride 102 Carbon Dioxide 26 BUN 30 H Creatinine 0.89 Glucose 137 H Calcium 8.3 L Total Bilirubin AST ALT Alkaline Phosphatase Troponin I 34.22 H* 07/21/18 00:21 WBC Hgb Hct Plt Count INR Sodium Potassium Chloride Carbon Dioxide BUN Creatinine Glucose Calcium Total Bilirubin AST ALT Alkaline Phosphatase Troponin I 35.36 H* - Imaging and Cardiology Chest Xray: report reviewed Stress Test: report reviewed Echo: report reviewed Other Results: Pacemaker interrogation report reviewed, tele reviewed - EKG Interpretation EKG results cardiology: personally reviewed Consult Discharge Plan - Plan Referrals: Michi Figueroa [Primary Care Provider] -
[2018-07-21] MEDS: Aspirin Enteric Coated 81 MG Tablet PO SCH ×2 (17:12→19:12)
--- NOTE | 2018-07-21 17:41 | Electrocardiograph Report ---
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
--- NOTE | 2018-07-21 17:45 | Electrocardiograph Report ---
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
[2018-07-21] MEDS ORDERED: *HR* Heparin 5,000 UNIT/ML VIAL IVP ONE (21:53)
[2018-07-21] MEDS ORDERED: *HR* Heparin 5,000 UNIT/ML VIAL IVP PRN ×2 (21:53)
[2018-07-21] MEDS ORDERED: Heparin 25,000 UNIT/500 ML D5W 25,000 UNIT/500 ML BAG IVC SCH (22:00)
[2018-07-21 22:26] LABS: INR 1.2; Prothrombin Time 13.8 Seconds (9.4-12.1)
--- NOTE | 2018-07-22 07:55 | Orthopedics Progress Note ---
Date of Encounter: 07/22/18 Time of Encounter: 07:54 - Assessment and Plan (1) CAD (coronary artery disease) Current Visit: No Status: Chronic Qualifiers: Coronary Disease-Associated Artery/Lesion type: [place] artery [place] vs. transplanted heart: [place] heart Associated angina: without angina Qualified Code(s): I25.10 - Atherosclerotic heart disease of [place] coronary artery without angina pectoris (2) COPD (chronic obstructive pulmonary disease) Current Visit: No Status: Chronic Qualifiers: COPD type: chronic bronchitis Chronic bronchitis type: unspecified Qualified Code(s): J42 - Unspecified chronic bronchitis (3) Chronic pain Current Visit: No Status: Chronic Qualifiers: Chronic pain type: other chronic pain Qualified Code(s): G89.29 - Other chronic pain (4) HLD (hyperlipidemia) Current Visit: No Status: Chronic Qualifiers: Hyperlipidemia type: unspecified Qualified Code(s): E78.5 - Hyperlipidemia , unspecified (5) HTN (hypertension) Current Visit: No Status: Chronic Qualifiers: Hypertension type: essential hypertension Qualified Code(s): I10 - Essential (primary) hypertension Subjective Interval history: Patient was seen this morning doing well without complaints. Afebrile vital signs stable. Operative extremity: Neurovascularly intact Dressing clean dry and intact Calves nontender Assessment and plan: Continue with postoperative care Patient doing much better appreciate cardiology consult. Objective Vital signs: Vital Signs Temp Pulse Resp BP Pulse Ox 07/22/18 06:54 99.1 F 78 16 110/60 94 07/22/18 03:49 98.5 F 83 16 94/57 95 07/21/18 22:47 99.0 F 97 16 106/66 93 07/21/18 18:25 99.2 F 112 18 112/68 93 07/21/18 18:02 97.8 F 109 17 120/72 07/21/18 14:02 98.1 F 94 14 110/70 07/21/18 11:09 99.1 F 84 18 94/62 96 07/21/18 10:02 97.7 F 98 14 110/73 Intake and Output 07/21/18 07/21/18 07/22/18 15:59 23:59 07:59 Intake Total 120 / 120 107 / 107 Output Total 525 / 525 100 / 100 Balance -405 / -405 -100 / -100 107 / 107 Intake: IV Fluids 107 / 107 Heparin 25,000 UNIT/500 ML D5W 107 / 107 25,000 unit In 500 ml @ 12 UNIT /KG/HR 17.136 mls/hr IVC .Q24H SOLIS Rx#:[id number] Oral 120 / 120 Output: Urine 100 / 100 Catheter 525 / 525 Other: Meal Lunch Percent of Meal Consumed 55% # Voids 1 - Labs CBC & BMP: 07/21/18 00:21 07/21/18 00:21 Labs: Abnormal lab results RBC 3.20 M/mcL (4.19-5.50) L 07/20/18 21:37 Hgb 10.3 g/dL (12.9-16.9) L 07/21/18 00:21 Hct 30.8 % (37.5-50.1) L 07/21/18 00:21 Plt Count 116 K/mcL (140-400) L 07/20/18 21:37 PT 13.8 Seconds (9.4-12.1) H 07/21/18 22:05 Heparin Anti-Xa, Unfract 0.28 IU/mL (0.30-0.70) L 07/22/18 05:53 Sodium 133 mEq/L (136-145) L 07/21/18 00:21 BUN 30 mg/dL (8-23) H 07/21/18 00:21 BUN/Creatinine Ratio 34 (6-26) H 07/21/18 00:21 Glucose 137 mg/dL (70-105) H 07/21/18 00:21 Calcium 8.3 mg/dL (8.6-10.3) L 07/21/18 00:21 AST 118 Units/L (13-39) H 07/20/18 21:37 Troponin I 28.31 ng/mL (< 0.04) H* 07/21/18 16:50 Serum Total Protein 5.0 g/dL (6.4-8.9) L 07/20/18 21:37 Albumin 3.0 g/dL (3.5-5.7) L 07/20/18 21:37 Globulin 2.0 g/dL (2.4-3.5) L 07/20/18 21:37 Urine Ketones Trace mg/dL (Negative) H 07/20/18 23:10 Ur Leukocyte Esterase Trace (Negative) H 07/20/18 23:10 Urine Microscopic RBC 5-15 per hpf (0-3) H 07/20/18 23:10 Urine Microscopic WBC 3-5 per hpf (0-3) H 07/20/18 23:10 Ur Squamous Epith Cells Many per lpf (None-Few) H 07/20/18 23:10 Ur Culture Indicated? NO. (NO) A 07/20/18 23:10 - VTE Documentation of Mechanical Device: Venous foot pump, device Consult Discharge Plan - Plan Referrals: Michi Figueroa [Primary Care Provider] -
[2018-07-22] MEDS: Metoprolol XL (24 HR) Succ 25 MG TAB.ER.24H PO SCH (08:23)
[2018-07-22] MEDS: Ascorbic Acid 500 MG TABLET PO SCH ×2 (08:23→18:02)
[2018-07-22] MEDS: Aspirin Enteric Coated 81 MG Tablet PO SCH (08:23)
[2018-07-22] MEDS: Multivit/Ca/Min/Fe/FA 1 TAB TABLET PO SCH (08:24)
--- NOTE | 2018-07-22 09:25 | Cardiology Progress Note ---
Date of Encounter: 07/22/18 Time of Encounter: 09:23 Assessment and Plan (1) Elevated troponin Current Visit: Yes Status: Acute peak 35, down trends, no angina or CHF, ECG IMI indetermined age, TTE RWMA ( inflat,inf more than other segments)) IMP: SC (LCx/RCA territory) Ddx stress CMP P: - given low EF, RWMA, prefer [facility] with possible PCI - discussed with pt and family, agree with plan - discussed with ortho PA re heparin use - discussed with Dr Arreola - NPO - [facility] after 11am - c/w DAPT, heparin drip - watch for VT on tele (2) HFrEF (heart failure with reduced ejection fraction) Current Visit: Yes Status: Acute LVEF 35-40%, no decompensation, euvolemia c/w BB and ACEI and titration watch for VT on tele Qualifiers: Heart failure chronicity: acute Qualified Code(s): I50.21 - Acute systolic (congestive) heart failure (3) Status post total hip replacement, left Current Visit: No Status: Acute (4) HTN (hypertension) Current Visit: No Status: Chronic BP ok Qualifiers: Hypertension type: essential hypertension Qualified Code(s): I10 - Essential (primary) hypertension (5) CAD (coronary artery disease) Current Visit: No Status: Chronic ho PCI. see primary section Qualifiers: Coronary Disease-Associated Artery/Lesion type: [place] artery [place] vs. transplanted heart: [place] heart Associated angina: without angina Qualified Code(s): I25.10 - Atherosclerotic heart disease of [place] coronary artery without angina pectoris Discussion w patient/family: The assessment and plan as outlined above was discussed with the patient and/or family members who expressed understanding and agreement. All questions were answered. Thank you for involving us in the care of your patient. Please call with any questions. Subjective Principal diagnosis: Elevated troponin Interval history: No complaints, no CP, dyspnea, palpitations. Started DAPT and heparin drip last night. Trop downtrend,34-35-28 ECG today SR, int V pacing, PVCs, inferior SC indetermined age lisa recent- acute, low voltage Tele int AV/V pacing Objective Vital Signs, Last 4 Hours Temp Pulse Resp BP Pulse Ox 07/22/18 08:37 94 07/22/18 06:54 99.1 F 78 16 110/60 94 Other: General: NAD, AAO, cogent HEENT: anicteric Neck: no JVD Chest: CTA B/L, no W/R/C Heart: RR, S1/S2, no S3/S4, 2/6 SM LSB, no G/R Abdominal: BS +, soft, ND, NT Peripheral Pulses: radial pulse 2+ B/L, DP 2+ B/L, R-femoral A 2+ Skin/Extremities: no LE edema, L-hip post-surgical w/o site bleeding Neurological: B/L UE motor 5/5. Results 07/21/18 00:21 07/21/18 00:21 Lab Results 07/21/18 07/21/18 16:50 22:05 INR 1.2 Troponin I 28.31 H* - Imaging and Cardiology Echo: report reviewed, image reviewed Holter: other (Tele reviewed) - EKG Interpretation EKG results cardiology: personally reviewed - VTE Documentation of Mechanical Device: Venous foot pump, device Consult Discharge Plan - Plan Referrals: Michi Figueroa [Primary Care Provider] -
[2018-07-22] MEDS ORDERED: Heparin 1,000 UNITS/500 mL 500 ML ONE (11:29)
[2018-07-22] MEDS ORDERED: ISOVUE-370 200 ML INFUS..BTL IV ONE (11:29)
[2018-07-22] MEDS ORDERED: 0.9 % Sodium Chloride 2,000 ML ONE (11:29)
[2018-07-22] MEDS ORDERED: *HR* Heparin 10,000 UNIT/10 ML VIAL ONE (11:29)
[2018-07-22] MEDS ORDERED: Nitroglycerin 1,000 MCG/10 ML VIAL IV ONE (11:30)
[2018-07-22] MEDS ORDERED: 0.9 % Sodium Chloride 1,000 ML ONE (12:08)
[2018-07-22] MEDS: Ringers Solution, Lactated 1,000 ML IVC SCH ×3 (12:23→15:35)
--- NOTE | 2018-07-22 12:23 | Pre-Sedation Evaluation ---
Pre-sedation evaluation - Pre-sedation checklist Date of procedure: 07/22/18 Procedure: heart cath Recent Vitals: Last Vital Signs Temp 99.1 F 07/22/18 06:54 Pulse 78 07/22/18 06:54 Resp 16 07/22/18 06:54 BP 110/60 07/22/18 06:54 Pulse Ox 94 07/22/18 08:37 H&P (including ROS) documented in medical record: Yes Previous reaction to sedatives/anesthetics: No Dietary Status: No solid food in preceding 4 hrs and no liquid in preceding 2 hrs Airway Assessment: Patient can open mouth completely, TMJ function normal Dentition: No loose teeth or bridges, poor dentition Possible difficult airway: No ASA Classification *see protocol: CLASS IV-Severe systemic disease/constant threat to pt's life Plan of Care: Pt appropriate candidate for procedure/moderate/conscious sedation , Risks/benefits of procedure/sedation discussed w/ patient/family, If not NPO; Risk of intake outweiged by necessity to perform procedure Cardiac Registry (Cardio Only) - Functional Capacity Functional Capacity: >=4 METS with symptoms - Clincal Frailty Scale Clinical Frailty Scale: Vulnerable
[2018-07-22] MEDS ORDERED: *HR* Midazolam HCl 2 MG/2 ML VIAL ONE (12:25)
[2018-07-22] MEDS ORDERED: Verapamil 5 MG/2 ML VIAL ONE (12:28)
--- NOTE | 2018-07-22 13:04 | Event Note ---
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
--- NOTE | 2018-07-22 14:13 | Invasive Diagnostic Lab Proc ---
Name: Servando Lorenzana Date of Study: 07/22/2018 Date: 1930 Ht: 64.2in Medical Record#: [id number] Age: 87 Wt: 156.53lb Gender: Male BSA: 1.77 Order #: [id number] BMI: 26.72 Physicians Procedure Physician: Johnnie Arreola DO Referring MD: Referring MD: Staff Name Position Time In Bud Leon RT (R) Scrub 12:25 PM Mirella Rudolph RT (R) Monitor 12:12 PM Taisha Gallardo RN Salmon Gillnet Vessel Operator 12:12 PM Indications Indication Non-Stemi Procedures Performed Procedure PRQ CARD SUE STENT W/ANGIO 1 VSL L HRT ARTERY/VENTRICLE ANGIO Pre-Procedure Checklist Informed consent is complete signed and on chart. H&P is on chart. ID band is on and ID verified with patient. Patient NPO for procedure The procedure was described for the patient and questions were answered. Blood Pressure: 110/60 ECG is on chart. Plan of Care Patient will tolerate the procedure without complications. Adequate level of comfort will be maintained. Hemodynamics will remain stable Patient will recover from procedure without complications. Respiratory function will be maintained. Cardiac rhythm will remain stable. Patient temperature will be maintained. Patient and/or family have verbalized understanding of the procedure. Patient Education Chief Complaint/Reason for Test: Cardiac Cath Developmental Category: Geriatric (65+ years) Developmentally Appropriate for Age: Yes Learning Barriers: None Education Needs: Procedure Education Method: Verbal Information Taught: Cardiac Cath Educational Evaluation: Able to repeat information Intravenous Access Time IV Size Location DC'd Fluid/Drip Rate Units RN 11:31 AM 20g 1 /" Patent On Arrival Rt Antecubital 0.9NaCl 25 ml/hr Taisha Gallardo RN Allergies albuterol prednisone Vital Signs Time BP (mmHg) HR (bpm) O2 Sat. RR (bpm) LOC 11:31 AM 110 / 60 78 94 % 16 5 = Fully awake and oriented or at pre-proc level 12:32 PM / % 4 = Oriented but drowsy 12:33 PM / % 4 = Oriented but drowsy 12:48 PM / % 5 = Fully awake and oriented or at pre-proc level 01:03 PM / % 4 = Oriented but drowsy 12:25 PM 99 / 70 95 100 % 36 12:30 PM 97 / 64 88 97 % 40 12:35 PM 103 / 65 88 97 % 36 12:40 PM 105 / 68 93 99 % 31 12:45 PM 101 / 70 91 97 % 31 12:51 PM 98 / 37 86 95 % 31 12:55 PM 90 / 51 91 97 % 37 01:00 PM 94 / 61 93 96 % 31 01:05 PM 107 / 67 85 98 % 33 01:10 PM 108 / 70 93 92 % 31 01:15 PM 102 / 59 93 96 % 37 01:37 PM 101 / 62 95 100 % 20 4 = Oriented but drowsy 02:01 PM 112 / 65 86 100 % 20 4 = Oriented but drowsy Procedural Medications Time Medication Dose Units Method Given By 12:28 PM Oxygen 2 L/min nasal cannula Taisha Gallardo RN 12:30 PM Versed 1 mg Intravenous Taisha Gallardo RN 12:45 PM Lidocaine 2% 3 ml Subcutaneous Johnnie Arreola DO 12:49 PM units Nitroglycerin mcg Verapamil 2.5 mg Intraarterial Johnnie Arreola DO 01:02 PM Heparin 2000 units Intravenous Taisha Gallardo RN 01:07 PM Oxygen 4 L/min Oxy Mask Taisha Gallardo RN 01:13 PM Nitroglycerin 50 mcg Intracoronary Johnnie Arreola DO ASA Classification: CLASS IV- Severe systemic that is constant threat to patient's life Augie Score Preprocedure Postprocedure Activity 2- Moves 4 extremities sustained head lift Activity 2- Moves 4 extremities sustained head lift Circulation 2- SBP +/= 20 points of pre-anesthetic level Circulation 2- SBP +/= 20 points of pre-anesthetic level Consciousness 2- Awake and alert oriented x 3 Consciousness 2- Awake and alert oriented x 3 O2 Saturation 2- Able to maintain O2 satruation of 92% on room air O2 Saturation 2- Able to maintain O2 satruation of 92% on room air Respiratory 2- Able to deep breathe and cough well Respiratory 2- Able to deep breathe and cough well Total Score 10 Total Score 10 Contrast Agent: Isovue Diagnostic Contrast: 100 ml Total Contrast: 100 ml Fluoro Dose: 6443 mGy Activated Clotting Time Time Seconds to Clot 01:01 PM 164 Procedure Log Time Note Enter By 11:28 AM CathStat 12:12 PM Mirella Rudolph RT (R) Position: Monitor Time in: 12:12 dspellman 12:12 PM Taisha Gallardo RN Position: Salmon Gillnet Vessel Operator Time in: 12:12 12:12 PM Bud Leon RT (R) Position: Scrub Time in: 12:12 ell 12:12 PM Pt arrived to lab support technician 1 at 12:12 dspell 12:15 PM Physician arrived 12:15 12:15 PM Meet and greet completed 12:15 PM Sign in performed according to hospital policy. ell 12:15 PM Procedure start 12:15 dspell 12:20 PM Case Start 12:20 PM Time: 12:20 Oxygen on at 2 L/min per nasal cannula by Taisha Gallardo RN 12:20 PM Hair removed from procedure site in procedure lab using clippers. Right wrist, right groin prepped with Chloraprep by Mirella Rudolph RT (R), then patient was draped. Skin intact. 12:25 PM Vitals capture started with the following parameters, Patient=Adult, Interval=5 min, Initial Qtczzcic=812 mmHg, Deflation Rate=5 mmHg, Cuff placed on Right Arm 12:25 PM HR=95 bpm, NIBP=99/70 mmhg, UvY6=442.0 %, Resp=36 B/min 12:26 PM Patient charges- Angio tray pack, Navilyst 3mm J, Pulse Oximetry and ACIST tubing and transducer dspell 12: PM IV Supplies used: J loop Angio Cath. ell 12: PM Case Delayed No 12:30 PM Time: 12:30 Versed 1 mg Intravenous Given by Taisha Gallardo RN [facility] 12:30 PM HR=88 bpm, NIBP=97/64 mmhg, SpO2=97.0 %, Resp=40 B/min, Comment=a-fib 12:32 PM Time: 12:31 Patient comfortable and pain free: Yes 12:32 PM Pressure channel 2 zeroed. 12:33 PM Time: 12:32LOC: 4 = Oriented but drowsy dspell 12:33 PM Clinical Presentation: Non-STEMI dspell 12:35 PM HR=88 bpm, ATWR=244/65 mmhg, SpO2=97.0 %, Resp=36 B/min 12:38 PM ASA Class CLASS IV- Severe systemic that is constant threat to patient's life dspell 12:40 PM HR=93 bpm, TGKV=724/68 mmhg, SpO2=99.0 %, Resp=31 B/min, Comment=a-fib 12:45 PM Time out performed according to hospital policy dspell 12:45 PM HR=91 bpm, AAAP=467/70 mmhg, SpO2=97.0 %, Resp=31 B/min, Comment=a-fib 12:45 PM Time: 12:45 3 ml Lidocaine 2% to right radial Subcutaneous Given by Johnnie Arreola DO dspell 12:47 PM Time: 12:32 Patient comfortable and pain free: Yes dspell 12:48 PM Time: 12:33LOC: 4 = Oriented but drowsy dspellman 12:49 PM Access obtained by percutaneous puncture. 6Fr 10cm Terumo Glidesheath sheath placed in right Radial artery. [id number] dspell 12:50 PM Time: 12:49 Patient given ,200 mcg Nitroglycerin, and 2.5 mg Verapamil Intraarterial by Johnnie Arreola DO. This is given to reduce risk of vessel spasm and thrombosis. dspell 12:50 PM 6Fr FR 4 catheter inserted over the wire [facility] dspell 12:50 PM Pressure channel 2 zeroed. 12:51 PM Recorded Pressure: LV, HR=90, Condition=Condition 1 (Left Ventricle) LV 97/22/29 12:51 PM HR=86 bpm, NIBP=98/37 mmhg, SpO2=95 %, Resp=31 B/min 12:51 PM Recorded Pressure: LV, Ao, HR=88, Condition=Condition 1 (Left Ventricle) LV 96/18/24, (Aorta) Ao 84/48/65 12:51 PM Recorded Pressure: Ao, HR=93, Condition=Condition 1 (Aorta) Ao 86/51/66 12:53 PM Catheter selectively placed in left ventricle dspell 12:53 PM Bolus angiogram of left Ventricle complete: 10 ml/sec for a total of 10 mls dspellman 12:53 PM RCA angiography performed in multiple views. dspellman 12:53 PM Catheter removed dspell 12:54 PM 6Fr FL 4 catheter inserted over the wire [facility] dspellman 12:54 PM 0.035 145cm Navilyst 3mmJ wire [id number] dspellman 12:55 PM LCA angiography performed in multiple views. dspellman 12:55 PM Recorded Pressure: Ao, HR=94, Condition=Condition 1 (Aorta) Ao 88/51/66 12:55 PM HR=91 bpm, NIBP=90/51 mmhg, SpO2=97.0 %, Resp=37 B/min, Comment=a-fib 12:57 PM Catheter removed dspellman 12:57 PM Lesion found in Proximal Circumflex. Pre Stenosis: 100 Pre KELLY Flow: 0: No Flow/No perfusion dspellman 12:58 PM Circumflex, Obtuse Marginal, Left Posterior Descending, and Left Posterolateral Coronary Arteries with 100 % stenosis. If graft is supplying this area, 0 % stenosis dspellman 12:58 PM PCI Status Urgent dspellman 12:58 PM PCI lesion in Proximal Circumflex. dspellman 12:58 PM 6Fr JL4 Cordis guide catheter was used to cannulate the PCI vessel successfully. reused? No dspellman 12:59 PM .014 ChoICE PT Extra Support 300cm guide wire across target lesion- successful. reused? No dspell 12:59 PM aCT drawn dspell 12:59 PM Inflation device was opened. dspell 01:00 PM Recorded Pressure: Ao, HR=95, Condition=Condition 1 (Aorta) Ao 92/49/69 01:00 PM HR=93 bpm, NIBP=94/61 mmhg, SpO2=96.0 %, Resp=31 B/min, Comment=a-fib 01:01 PM At 13:01 the ACT was 164 seconds. dspell 01:02 PM Time: 12:47 Patient comfortable and pain free: Yes dsp 01:02 PM Time: 13:02 Heparin 2000 units Intravenous Given by Taisha Gallardo RN 01:03 PM Time: 12:48LOC: 5 = Fully awake and oriented or at pre-proc level dspell 01:04 PM 2.0 mm x 15 mm Emerge Monorail balloon across target lesion- successful. reused? No 01:05 PM HR=85 bpm, AZYW=567/67 mmhg, SpO2=98 %, Resp=33 B/min, Comment=a-fib 01:07 PM Time: 13:07 Oxygen on at 4 L/min per Oxy Mask by Taisha Gallardo RN :07 PM Balloon inflated @ 12 [place]bell for 23 seconds dspell:09 PM Balloon catheter removed intact. :09 PM Recorded Pressure: Ao, HR=93, Condition=Condition 1 (Aorta) Ao 107/56/80 01:10 PM 2.5mm x 8mm Synergy drug-eluting stent across target lesion- successful Lot #[id number] dspell 01:10 PM HR=93 bpm, CXLV=232/70 mmhg, SpO2=92.0 %, Resp=31 B/min, Comment=a-fib 01:11 PM Stent deployed @ 14 campbell for 18 seconds dspell 01:12 PM Stent delivery system removed intact. dsp 01:12 PM Guide wire removed intact. :13 PM Time: 13:13 Nitroglycerin 50 mcg Intracoronary Given by Johnnie Arreola DO dspell:15 PM Guide catheter removed intact. :15 PM Procedure completed at 13:15 07/22/2018 dspell:15 PM HR=93 bpm, FHHD=682/59 mmhg, SpO2=96.0 %, Resp=37 B/min, Comment=a-fib 01:17 PM Time: 13:02 Patient comfortable and pain free: Yes :18 PM Time: 13:03LOC: 4 = Oriented but drowsy dsp:19 PM Sign out completed: Radiation Dose 767.40 mGy, 6443.41 cGy/cm2 Fluoro Time: 8.1 Isovue 370 - 200ml contrast 100 ml given by Johnnie Arreola DO. Complications: NoneCardiac Rehab Consult needed: YesConfirmed administered medications: Yes :19 PM Isovue 370 - 200ml,1 Bottle(s) used. :19 PM Arterial sheath pulled, Vasc Band closure device used and was Successful S/N. :20 PM 11 ml air in Vasc Band. :20 PM Estimated Blood Loss: minimal dspell:20 PM Post ECG Atrial Fibrillation dspell:20 PM Post Blood Pressure 102/59 dspell:21 PM 13:21 Post Pulses Rt Radial 2+ dspell:25 PM Information taught Cardiac Cath, PCI, and Vasc Band dspell:25 PM Education needs Procedure, Plan of Care, and Responsibilities of Patient in Care dspellman 01:25 PM Learning barriers :None 01:25 PM Education Methods Verbal 01:25 PM Education evaluation Able to repeat information 01:26 PM Site status No bleeding/hematoma - Rt Wrist as reported by Bud Leon RT (R) at 13:25 dsp:27 PM Delay to floor Bed availability ell 01:27 PM Patient out of room: 13:27 01:27 PM Family placed in consult room. :27 PM Complications: None 01:30 PM Report given to Paty HOOK Pt taken to Holding room Room #2. 13:30 02:00 PM Report called to [facility] 2A mprater 02:05 PM Patient transfered to 2A mprater Complications Complication None None Hemodynamics Pressures Site Systolic/A Wave Diastolic/V Wave Mean LV 97 22 29 LV 96 18 24 AO 84 48 65 AO 86 51 66 AO 88 51 66 AO 92 49 69 AO 107 56 80 Post Procedure Information Blood Pressure: 102/59 mmHg Rhythm: Atrial Fibrillation Post procedural instructions were given Closure Device Time Device Success/Fail 07/22/2018 1:27:00 PM Mechanical Compression Successful Site Checks Time Location Status Staff Sheath In? Note 01:25 PM Rt Wrist No bleeding/hematoma Bud Leon RT (R) No 11 ml air vasc band 01:36 PM Rt Wrist No bleeding/ No Hematoma Meaghan Pierson RN 11 cc air vasc band 02:00 PM Rt Wrist No bleeding/ No Hematoma Meaghan Pierson RN 11cc air vasc band Pulses Time Site Pre-Procedure Post-Procedure Note 07/22/2018 11:31:00 AM Bilateral DP & PT 1+ 07/22/2018 11:31:00 AM Bilateral radial 2+ 1:21:00 PM Rt Radial 2+ 07/22/2018 1:36:00 PM Rt Radial 2+ 07/22/2018 2:00:00 PM Rt Radial 2+ Updated by Paty Hartley RN on 07/22/2018 2:06:06 PM Paty Hartley RN electronically signed on 07/22/2018 2:06:39 PM with status of Final
--- NOTE | 2018-07-22 15:36 | Electrocardiograph Report ---
[address] [address] Test Date: 2018-07-22 Pat Name: Servando Lorenzana Department: 114 Room: 2A22 Gender: M Relay Tester: : 1930 Requested By: Carmen Quintero Order Number: [id number] Reading MD: Violet Pete Measurements Intervals [place] Rate: 83 P: IN: 0 QRS: 42 QRSD: 88 T: 266 QT: 368 QTc: 408 Interpretive Statements ELECTRONIC VENTRICULAR PACEMAKER A PACING OCCASIONALLY SEEN Electronically Signed On 07-22-2018 15:35:03 EDT by Violet Pete
[2018-07-22] MEDS: Acetaminophen 325 MG TABLET PO PRN (22:20)
[2018-07-23] MEDS: *HR* Enoxaparin 30 MG/0.3 ML SYRINGE SQ SCH ×2 (05:32→17:29)
[2018-07-23] MEDS: Ringers Solution, Lactated 1,000 ML IVC SCH (05:32)
--- NOTE | 2018-07-23 05:42 | Internal Med Progress Note ---
Hospitalist Progress Note - Encounter Date of Encounter: 07/22/18 Time of Encounter: 19:00 - Subjective Interval History: SUBJECTIVE: The patient feels weak. Otherwise, he is not voicing any other symptoms. He had total left knee replacement on 07/19/18. Yesterday he developed some chest pain with elevated troponin; had cardiac catheterization/opening and stenting of left circumflex artery today morning. OBJECTIVE: Skin: Free of rash and discoloration. ENMT: Oral/pharyngeal mucosa is normal in appearance. Eyes: Sclera is white. There is no discharge from eyes. Respiratory: Normal breath sounds; no crackles or wheezes. CV: Heart is regular; no gallop or murmur. GI: Abdomen is soft and not tender. There is no palpable mass or visceromegaly. Neuro: There is no focal deficits. ASSESSMENT AND PLAN: Elevated troponin, likely due to NSTEMI. He has underlying coronary artery disease. He had PCI with opening/stenting of left circumflex today. He is on IV heparin, Toprol-XL and aspirin/Plavix. Heart failure with reduced ejection fraction. 3540%. Will continue Toprol-XL. Status post total left hip replacement. See notes from orthopedics. Hypertension. Under control. Toprol-XL. COPD. Clinically under control. - Exam Vitals: Temp Pulse Resp BP Pulse Ox 100 F H 77 16 107/58 97 07/23/18 03:45 07/23/18 03:45 07/23/18 03:45 07/23/18 03:45 07/23/18 03:45 Exam: xx - Assessment and Plan (1) Elevated troponin Current Visit: Yes Status: Acute (2) CAD (coronary artery disease) Current Visit: No Status: Chronic (3) HFrEF (heart failure with reduced ejection fraction) Current Visit: Yes Status: Acute (4) HTN (hypertension) Current Visit: No Status: Chronic (5) COPD (chronic obstructive pulmonary disease) Current Visit: No Status: Chronic (6) Moderate protein-calorie malnutrition Current Visit: Yes Status: Acute - Time Spent with Patient Total time spent is greater than 50% in coordination of care (as documented) at patient's floor/unit and/or counseling patient: 25 - 35 minutes Plan of Care Discussed with: patient Internal Medicine: Result - Labs CBC & Chem 7: 07/23/18 18:07/23/18 18:08 - ABG Interpretation ABG results: PT/INR, D-dimer PT 13.8 Seconds (9.4-12.1) H 07/21/18 22:05 - VTE Documentation of Mechanical Device: Venous foot pump, device Consult Discharge Plan - Plan Referrals: Michi Figueroa [Primary Care Provider] - (2) CAD (coronary artery disease) Qualifiers: Coronary Disease-Associated Artery/Lesion type: [place] artery [place] vs. transplanted heart: [place] heart Associated angina: without angina Qualified Code(s): I25.10 - Atherosclerotic heart disease of [place] coronary artery without angina pectoris (3) HFrEF (heart failure with reduced ejection fraction) Qualifiers: Heart failure chronicity: acute Qualified Code(s): I50.21 - Acute systolic ( congestive) heart failure (4) HTN (hypertension) Qualifiers: Hypertension type: essential hypertension Qualified Code(s): I10 - Essential (primary) hypertension (5) COPD (chronic obstructive pulmonary disease) Qualifiers: COPD type: chronic bronchitis Chronic bronchitis type: unspecified Qualified Code(s): J42 - Unspecified chronic bronchitis
[2018-07-23 05:44] LABS: Basophils % 0.2 %; Eosinophils # 0.1 K/mcL (0.0-0.6); Eosinophils % 0.7 %; Hematocrit 29.5 % (37.5-50.1); Hemoglobin 9.7 g/dL (12.9-16.9); Immature Granulocytes % 0.2 % (0-4); Lymphocytes # 0.6 K/mcL (0.6-4.6); Lymphocytes % 7.7 %; Mean Corpuscular HGB Conc 32.9 g/dL (31.6-35.5); Mean Corpuscular Hemoglobin 31.6 pg (28.0-33.3); Mean Corpuscular Volume 96.1 fL (83.0-100.0); Mean Platelet Volume 12.9 fL (9.4-12.4); Monocytes # 0.5 K/mcL (0.0-1.3); Monocytes % 6.3 %; Platelet Count 134 K/mcL (140-400); Red Blood Count 3.07 M/mcL (4.19-5.50); Red Cell Distribution Width 13.1 % (11.5-14.5); Segmented Neutrophils % 84.9 %
[2018-07-23 05:53] LABS: BUN/Creatinine Ratio 37 (6-26); Blood Urea Nitrogen 31 mg/dL (8-23); Calcium 8.2 mg/dL (8.6-10.3); Carbon Dioxide 24 mEq/L (23-29); Chloride 104 mEq/L (98-107); Glucose 133 mg/dL (70-105); Osmolality,Calculated 290 (280-300); Potassium 3.9 mEq/L (3.5-5.1); Sodium 136 mEq/L (136-145); eGFR For Non-African Americans > 60 (> 60)
[2018-07-23] MEDS: Acetaminophen 325 MG TABLET PO PRN ×2 (06:00→21:04)
[2018-07-23] MEDS: traMADol 50 MG TABLET PO PRN (06:00)
--- NOTE | 2018-07-23 09:07 | Orthopedics Progress Note ---
Date of Encounter: 07/23/18 Time of Encounter: 09:07 - Assessment and Plan (1) CAD (coronary artery disease) Current Visit: No Status: Chronic Qualifiers: Qualified Code(s): I25.10 - Atherosclerotic heart disease of [place] coronary artery without angina pectoris (2) COPD (chronic obstructive pulmonary disease) Current Visit: No Status: Chronic Qualifiers: Qualified Code(s): J42 - Unspecified chronic bronchitis (3) Chronic pain Current Visit: No Status: Chronic Qualifiers: Qualified Code(s): G89.29 - Other chronic pain (4) HLD (hyperlipidemia) Current Visit: No Status: Chronic Qualifiers: Qualified Code(s): E78.5 - Hyperlipidemia, unspecified (5) HTN (hypertension) Current Visit: No Status: Chronic Qualifiers: Qualified Code(s): I10 - Essential (primary) hypertension Subjective Principal diagnosis: Elevated troponin Interval history: Patient was seen this morning doing well without complaints. Afebrile vital signs stable. Operative extremity: Neurovascularly intact Dressing clean dry and intact Calves nontender Assessment and plan: Continue with postoperative care Patient doing much better after catheterization. Objective Vital signs: Vital Signs Temp Pulse Resp BP Pulse Ox 07/23/18 06:57 98.9 F 93 16 94/61 94 07/23/18 03:45 100 F H 77 16 107/58 97 07/23/18 00:42 99 F 93 16 107/67 96 07/22/18 22:33 95 07/22/18 19:57 100.5 F H 84 16 97/60 97 07/22/18 17:14 97.9 F 95 15 139/49 91 07/22/18 15:34 99.6 F 89 16 97/72 07/22/18 15:15 99.6 F 86 96/70 07/22/18 15:07 99.2 F 77 16 96/72 07/22/18 14:49 98.6 F 82 16 97/62 92 07/22/18 14:45 97.5 F L 85 16 97/62 07/22/18 14:30 99.8 F H 99/45 07/22/18 14:15 99.6 F 96 95/70 Intake and Output 07/22/18 07/23/18 07/23/18 23:59 07:59 15:59 Intake Total 1000 / 1000 Balance 1000 / 1000 Intake: IV Fluids 1000 / 1000 Lactated Ringers 1,000 ML @ 75 1000 / 1000 mls/hr IVC .[id number] [facility] Rx#: [id number] Other: Stool Size Large Stool Consistency soft Stool Color [place] # Bowel Movements 1 Weight 67.3 kg Patient Weight 07/23/18 23:59 Weight 67.3 kg - Labs CBC & BMP: 07/23/18 04:29 07/23/18 04:29 Labs: Abnormal lab results RBC 3.07 M/mcL (4.19-5.50) L 07/23/18 04:29 Hgb 9.7 g/dL (12.9-16.9) L 07/23/18 04:29 Hct 29.5 % (37.5-50.1) L 07/23/18 04:29 Plt Count 134 K/mcL (140-400) L 07/23/18 04:29 MPV 12.9 fL (9.4-12.4) H 07/23/18 04:29 PT 13.8 Seconds (9.4-12.1) H 07/21/18 22:05 Heparin Anti-Xa, Unfract 0.28 IU/mL (0.30-0.70) L 07/22/18 05:53 BUN 31 mg/dL (8-23) H 07/23/18 04:29 BUN/Creatinine Ratio 37 (6-26) H 07/23/18 04:29 Glucose 133 mg/dL (70-105) H 07/23/18 04:29 Calcium 8.2 mg/dL (8.6-10.3) L 07/23/18 04:29 AST 118 Units/L (13-39) H 07/20/18 21:37 Troponin I 28.31 ng/mL (< 0.04) H* 07/21/18 16:50 Serum Total Protein 5.0 g/dL (6.4-8.9) L 07/20/18 21:37 Albumin 3.0 g/dL (3.5-5.7) L 07/20/18 21:37 Globulin 2.0 g/dL (2.4-3.5) L 07/20/18 21:37 Urine Ketones Trace mg/dL (Negative) H 07/20/18 23:10 Ur Leukocyte Esterase Trace (Negative) H 07/20/18 23:10 Urine Microscopic RBC 5-15 per hpf (0-3) H 07/20/18 23:10 Urine Microscopic WBC 3-5 per hpf (0-3) H 07/20/18 23:10 Ur Squamous Epith Cells Many per lpf (None-Few) H 07/20/18 23:10 Ur Culture Indicated? NO. (NO) A 07/20/18 23:10 - VTE Documentation of Mechanical Device: Venous foot pump, device Consult Discharge Plan - Plan Referrals: Michi Figueroa [Primary Care Provider] -
--- NOTE | 2018-07-23 09:07 | Cardiology Progress Note ---
Date of Encounter: 07/23/18 Time of Encounter: 09:05 Assessment and Plan (1) Elevated troponin Current Visit: Yes Status: Acute NSTEMI due to prox LCx occlusion, s/p SUE; patent LAD stent. EF 35-40% P: - c/w DAPT - add lipitor 40 - c/w toprol, holly titration per BP, HR - watch for VT on tele - cardiac rehab - cardiology clinic f/u to repeat Echo and med titration (2) HFrEF (heart failure with reduced ejection fraction) Current Visit: Yes Status: Acute LVEF 35-40%, no decompensation, euvolemia c/w BB and ACEI and titration per BP, HR Cardiology clinic f/u Qualifiers: Heart failure chronicity: acute Qualified Code(s): I50.21 - Acute systolic (congestive) heart failure (3) Status post total hip replacement, left Current Visit: No Status: Acute (4) HTN (hypertension) Current Visit: No Status: Chronic BP ctr ok Qualifiers: Hypertension type: essential hypertension Qualified Code(s): I10 - Essential (primary) hypertension (5) CAD (coronary artery disease) Current Visit: No Status: Chronic see primary section. Qualifiers: Coronary Disease-Associated Artery/Lesion type: [place] artery [place] vs. transplanted heart: [place] heart Associated angina: without angina Qualified Code(s): I25.10 - Atherosclerotic heart disease of [place] coronary artery without angina pectoris Discussion w patient/family: The assessment and plan as outlined above was discussed with the patient and/or family members who expressed understanding and agreement. All questions were answered. Thank you for involving us in the care of your patient. Please call with any questions. Subjective Principal diagnosis: NSTEMI Interval history: [facility] SUE-prox LCx. No complaints, no CP, dyspnea or palpitations. Tele SR, intermittent A-V/V pacing with occ PVCs 07/22/18 [facility] Impressions: There is severe one vessel coronary artery disease. There is severe anterior, apical LV Dysfunction EF 35% Patient had successful PTCA/Drug-Eluting Stent placement in the proximal Circ. Stent placed from a prior procedure in the Proximal LAD is patent. Coronary Dominance: Left Lesion Findings/Interventions * Left Main Coronary Artery The LMCA is angiographically free of disease. * Left Anterior Descending There is a previous stent in the Proximal LAD that is patent. There is collateral flow from the LAD to the distal CIRC and Left PDA. * Circumflex There is a 8 mm long, 100% stenosis in the Proximal Circumflex, further described as a [employer]. The lesion has a KELLY flow of 0 and has collaterals which feed from left to left. An intervention was performed on the Proximal Circumflex with a final stenosis of 0%. There were no lesion complications. The final KELLY flow was 3. * Right Coronary Artery The RCA is angiographically free of disease, further described as small, non-dominant. Objective Vital Signs, Last 4 Hours Temp Pulse Resp BP Pulse Ox 07/23/18 06:57 98.9 F 93 16 94/61 94 Other: General: NAD, AAO, cogent HEENT: anicteric Neck: no JVD Chest: CTA B/L, no W/R/C Heart: RR, S1/S2, no S3/S4, 2/6 SM LSB, no G/R Abdominal: BS +, soft, ND, NT Peripheral Pulses: radial pulse 2+ B/L, DP 2+ B/L, Skin/Extremities: no LE edema, R-radial artery entry site no bleeding, L-hip post-surgical w/o site bleeding, Neurological: B/L UE motor 5/5 Results 07/23/18 04:29 07/23/18 04:29 Lab Results 07/23/18 07/23/18 04:29 04:29 WBC 8.2 Hgb 9.7 L Hct 29.5 L Plt Count 134 L Sodium 136 Potassium 3.9 Chloride 104 Carbon Dioxide 24 BUN 31 H Creatinine 0.84 Glucose 133 H Calcium 8.2 L - Imaging and Cardiology Cardiac cath: report reviewed, image reviewed Holter: other (Tele reviewed) - VTE Documentation of Mechanical Device: Venous foot pump, device Consult Discharge Plan - Plan Referrals: Michi Figueroa [Primary Care Provider] -
[2018-07-23] MEDS: Multivit/Ca/Min/Fe/FA 1 TAB TABLET PO SCH (09:19)
[2018-07-23] MEDS: Metoprolol XL (24 HR) Succ 25 MG TAB.ER.24H PO SCH (09:20)
[2018-07-23] MEDS: Ascorbic Acid 500 MG TABLET PO SCH ×2 (09:20→17:07)
[2018-07-23] MEDS: Aspirin Enteric Coated 81 MG Tablet PO SCH (09:20)
[2018-07-23 11:03] LABS: CKMB Percent NOT DONE (0.0-5.0)
[2018-07-23] MEDS ORDERED: 0.9 % Sodium Chloride w KCl 20 MEQ/1,000 ML MLS IVC SCH (18:00)
[2018-07-23 18:33] LABS: Basophils % 0.1 %; Eosinophils % 0.5 %; Hematocrit 29.1 % (37.5-50.1); Hemoglobin 9.6 g/dL (12.9-16.9); Immature Granulocytes % 0.4 % (0-4); Lymphocytes # 0.6 K/mcL (0.6-4.6); Lymphocytes % 7.7 %; Mean Corpuscular Hemoglobin 31.5 pg (28.0-33.3); Mean Corpuscular Volume 95.4 fL (83.0-100.0); Monocytes # 0.4 K/mcL (0.0-1.3); Monocytes % 5.8 %; Neutrophils # 6.5 K/mcL (1.6-8.9); Platelet Count 150 K/mcL (140-400); Red Blood Count 3.05 M/mcL (4.19-5.50); Red Cell Distribution Width 13.1 % (11.5-14.5); Segmented Neutrophils % 85.5 %
[2018-07-23 18:54] LABS: BUN/Creatinine Ratio 38 (6-26); Blood Urea Nitrogen 31 mg/dL (8-23); Calcium 8.2 mg/dL (8.6-10.3); Carbon Dioxide 26 mEq/L (23-29); Chloride 104 mEq/L (98-107); Glucose 138 mg/dL (70-105); Magnesium 2.2 mg/dL (1.6-2.6); Osmolality,Calculated 291 (280-300); Potassium 3.9 mEq/L (3.5-5.1); Sodium 136 mEq/L (136-145); eGFR For Non-African Americans > 60 (> 60)
[2018-07-23 18:58] LABS: Troponin I 18.59 ng/mL (< 0.04)
[2018-07-23] MEDS: Piperacillin/Tazobactam 3.375 GM in 0.9 % Sodium Chloride Mini Bag 100 ML IVPB SCH (21:06)
--- NOTE | 2018-07-23 22:01 | Event Note ---
Date of Encounter: 07/23/18 Time of Encounter: 14:00 Discharge planning: I spoke with Cardiology and hospitalist - plan to discharge possibly to rehab on Thursday pending LFT labs, telemetry and ability to start cardiac rehab.
[2018-07-24] MEDS: *HR* Enoxaparin 30 MG/0.3 ML SYRINGE SQ SCH ×2 (05:24→17:08)
[2018-07-24] MEDS: Piperacillin/Tazobactam 3.375 GM in 0.9 % Sodium Chloride Mini Bag 100 ML IVPB SCH ×3 (05:25→20:04)
--- NOTE | 2018-07-24 06:16 | Internal Med Progress Note ---
Hospitalist Progress Note - Encounter Date of Encounter: 07/23/18 Time of Encounter: 19:00 - Subjective Interval History: SUBJECTIVE: The patient has developed mild confusion. This associated with mild grade fever and mild hypoxia. He had total left knee replacement on 07/19/18. He had cardiac catheterization/opening and stenting of left circumflex artery yesterday. OBJECTIVE: Skin: Free of rash and discoloration. ENMT: Oral/pharyngeal mucosa is normal in appearance. Eyes: Sclera is white. There is no discharge from eyes. Respiratory: Normal breath sounds; no crackles or wheezes. CV: Heart is regular; no gallop or murmur. GI: Abdomen is soft and not tender. There is no palpable mass or visceromegaly. Neuro: There is no focal deficits. Chest x-ray shows patchy consolidation within the mid to lower lungs bilaterally , with probable pleural effusions. Hemoglobin is 9.6 with WBC of 7.6 thousand. BMP is normal. ASSESSMENT AND PLAN: The patient may be developing HCAP. We will start him on IV vancomycin/IV Zosyn. He has mild acute hypoxic respiratory failure. Elevated troponin, likely due to NSTEMI. He has underlying coronary artery disease. He had PCI with opening/stenting of left circumflex yesterday. He is on IV heparin, Toprol-XL, Lipitor and aspirin/Plavix. He is on subcutaneous Lovenox. Heart failure with reduced ejection fraction. 35-40%. Will continue Toprol-XL. Status post total left hip replacement. See notes from orthopedics. Hypertension. Under control. Toprol-XL. COPD. Clinically under control. He has moderate protein calorie malnutrition. We will continue supplemental feeding. See notes from dietary. - Exam Vitals: Temp Pulse Resp BP Pulse Ox 98.6 F 71 16 94/54 99 07/24/18 03:46 07/24/18 03:46 07/24/18 03:46 07/24/18 03:46 07/24/18 03:46 Exam: xx - Assessment and Plan (1) HCAP (healthcare-associated pneumonia) Current Visit: Yes Status: Acute (2) Acute respiratory failure with hypoxia Current Visit: Yes Status: Acute (3) Elevated troponin Current Visit: Yes Status: Acute (4) CAD (coronary artery disease) Current Visit: No Status: Chronic (5) HFrEF (heart failure with reduced ejection fraction) Current Visit: Yes Status: Acute (6) HTN (hypertension) Current Visit: No Status: Chronic (7) COPD (chronic obstructive pulmonary disease) Current Visit: No Status: Chronic (8) Status post total hip replacement, left Current Visit: No Status: Acute (9) Moderate protein-calorie malnutrition Current Visit: Yes Status: Acute - Time Spent with Patient Total time spent is greater than 50% in coordination of care (as documented) at patient's floor/unit and/or counseling patient: 25 - 35 minutes Plan of Care Discussed with: family Internal Medicine: Result - Labs CBC & Chem 7: 07/23/18 18:08 07/23/18 18:08 Labs: Short CBC 07/23/18 Range/Units 18:08 WBC 7.6 (4.3-11.1) K/mcL Hgb 9.6 L (12.9-16.9) g/dL Hct 29.1 L (37.5-50.1) % Plt Count 150 (140-400) K/mcL Neutrophils # 6.5 (1.6-8.9) K/mcL BMP 07/23/18 18:08 Sodium 136 Potassium 3.9 Chloride 104 Carbon Dioxide 26 BUN 31 H Creatinine 0.81 Glucose 138 H Calcium 8.2 L Cardiac Enzymes 07/21/18 07/23/18 Range/Units 08:36 18:08 CK-MB (CK-2) 23.9 H (0.0-5.0) ug/L Troponin I 18.59 H* (< 0.04) ng/mL - ABG Interpretation ABG results: PT/INR, D-dimer PT 13.8 Seconds (9.4-12.1) H 07/21/18 22:05 - Impressions Impressions Chest X-Ray 07/23/18 17:43 IMPRESSION: Patchy consolidation within the mid to lower lungs bilaterally, with probable pleural effusions. Pulmonary edema and multifocal pneumonia both considered in this case. D/ / Eusebio Radford MD / Eusebio Radford MD Interpreting Provider: Eusebio Radford MD - VTE Documentation of Mechanical Device: Venous foot pump, device Consult Discharge Plan - Plan Referrals: Michi Figueroa [Primary Care Provider] - (4) CAD (coronary artery disease) Qualifiers: Coronary Disease-Associated Artery/Lesion type: [place] artery [place] vs. transplanted heart: [place] heart Associated angina: without angina Qualified Code(s): I25.10 - Atherosclerotic heart disease of [place] coronary artery without angina pectoris (5) HFrEF (heart failure with reduced ejection fraction) Qualifiers: Heart failure chronicity: acute Qualified Code(s): I50.21 - Acute systolic ( congestive) heart failure (6) HTN (hypertension) Qualifiers: Hypertension type: essential hypertension Qualified Code(s): I10 - Essential (primary) hypertension (7) COPD (chronic obstructive pulmonary disease) Qualifiers: COPD type: chronic bronchitis Chronic bronchitis type: unspecified Qualified Code(s): J42 - Unspecified chronic bronchitis
--- NOTE | 2018-07-24 06:47 | Orthopedics Progress Note ---
Date of Encounter: 07/24/18 Time of Encounter: 06:47 - Assessment and Plan (1) CAD (coronary artery disease) Current Visit: No Status: Chronic Qualifiers: Coronary Disease-Associated Artery/Lesion type: [place] artery [place] vs. transplanted heart: [place] heart Associated angina: without angina Qualified Code(s): I25.10 - Atherosclerotic heart disease of [place] coronary artery without angina pectoris (2) COPD (chronic obstructive pulmonary disease) Current Visit: No Status: Chronic Qualifiers: COPD type: chronic bronchitis Chronic bronchitis type: unspecified Qualified Code(s): J42 - Unspecified chronic bronchitis (3) Chronic pain Current Visit: No Status: Chronic Qualifiers: Chronic pain type: other chronic pain Qualified Code(s): G89.29 - Other chronic pain (4) HLD (hyperlipidemia) Current Visit: No Status: Chronic Qualifiers: Hyperlipidemia type: unspecified Qualified Code(s): E78.5 - Hyperlipidemia , unspecified (5) HTN (hypertension) Current Visit: No Status: Chronic Qualifiers: Hypertension type: essential hypertension Qualified Code(s): I10 - Essential (primary) hypertension (6) Acute myocardial infarction Current Visit: Yes Status: Acute Qualifiers: Myocardial infarction type: unspecified Involved coronary artery: unspecified coronary artery Qualified Code(s): I21.9 - Acute myocardial infarction, unspecified (7) S/P coronary artery stent placement Current Visit: Yes Status: Acute (8) Acute respiratory failure with hypoxia Current Visit: Yes Status: Acute (9) Elevated troponin Current Visit: Yes Status: Acute (10) HCAP (healthcare-associated pneumonia) Current Visit: Yes Status: Acute (11) HFrEF (heart failure with reduced ejection fraction) Current Visit: Yes Status: Acute Qualifiers: Heart failure chronicity: acute Qualified Code(s): I50.21 - Acute systolic (congestive) heart failure (12) Moderate protein-calorie malnutrition Current Visit: Yes Status: Acute (13) Arthritis of left hip Current Visit: No Status: Chronic (14) Status post total hip replacement, left Current Visit: No Status: Acute (15) Acute blood loss anemia Current Visit: Yes Status: Acute Subjective Principal diagnosis: NSTEMI Interval history: Patient was seen this morning doing well without complaints. Afebrile vital signs stable. Operative extremity: Neurovascularly intact Dressing clean dry and intact Calves nontender Assessment and plan: Continue with postoperative care Patient resting comfortably. Objective Vital signs: Vital Signs Temp Pulse Resp BP Pulse Ox 07/24/18 06:35 98.8 F 77 16 96/59 99 07/24/18 03:46 98.6 F 71 16 94/54 99 07/24/18 00:02 98.6 F 71 16 96/59 98 07/23/18 21:40 95 07/23/18 19:24 97.7 F 94 16 108/65 100 07/23/18 17:33 100.3 F H 07/23/18 16:39 98.6 F 97 16 115/65 99 07/23/18 14:38 104/55 07/23/18 10:24 98.8 F 91 15 84/44 93 07/23/18 09:32 94 07/23/18 09:15 102/78 07/23/18 06:57 98.9 F 93 16 94/61 94 Intake and Output 07/23/18 07/23/18 07/24/18 15:59 23:59 07:59 Intake Total 480 / 480 1350 / 1350 Balance 480 / 480 1350 / 1350 Intake: IV Fluids 1350 / 1350 KCl 20 mEq in 0.9% Sodium 1 / 1 Chloride 20 meq In 1,000 ml @ 75 mls/hr IVC .[id number] [facility] Rx#: [id number] Zosyn 3.375 GM In 0.9 % Sodium 100 / 100 Chloride (Mini-Bag +) 100 ML @ 25 mls/hr IVPB Q8H [facility] Rx#: [id number] Vancocin 1,250 MG In 0.9 % 250 / 250 Sodium Chloride 250 ML @ 166.67 mls/hr IVPB ONCE ONE Rx#: [id number] Oral 480 / 480 Other: Meal Lunch Percent of Meal Consumed 50% # Urine Diapers 1 # Bowel Movement Diapers 1 Weight 67.8 kg Patient Weight 07/24/18 23:59 Weight 67.8 kg - Labs CBC & BMP: 07/23/18 18:08 07/23/18 18:08 Labs: Abnormal lab results RBC 3.05 M/mcL (4.19-5.50) L 07/23/18 18:08 Hgb 9.6 g/dL (12.9-16.9) L 07/23/18 18:08 Hct 29.1 % (37.5-50.1) L 07/23/18 18:08 PT 13.8 Seconds (9.4-12.1) H 07/21/18 22:05 Heparin Anti-Xa, Unfract 0.28 IU/mL (0.30-0.70) L 07/22/18 05:53 BUN 31 mg/dL (8-23) H 07/23/18 18:08 BUN/Creatinine Ratio 38 (6-26) H 07/23/18 18:08 Glucose 138 mg/dL (70-105) H 07/23/18 18:08 Calcium 8.2 mg/dL (8.6-10.3) L 07/23/18 18:08 AST 118 Units/L (13-39) H 07/20/18 21:37 CK-MB (CK-2) 23.9 ug/L (0.0-5.0) H 07/21/18 08:36 Myoglobin 343 ng/mL (28-72) H 07/21/18 10:12 Troponin I 18.59 ng/mL (< 0.04) H* 07/23/18 18:08 Serum Total Protein 5.0 g/dL (6.4-8.9) L 07/20/18 21:37 Albumin 3.0 g/dL (3.5-5.7) L 07/20/18 21:37 Globulin 2.0 g/dL (2.4-3.5) L 07/20/18 21:37 Urine Ketones Trace mg/dL (Negative) H 07/20/18 23:10 Ur Leukocyte Esterase Trace (Negative) H 07/20/18 23:10 Urine Microscopic RBC 5-15 per hpf (0-3) H 07/20/18 23:10 Urine Microscopic WBC 3-5 per hpf (0-3) H 07/20/18 23:10 Ur Squamous Epith Cells Many per lpf (None-Few) H 07/20/18 23:10 Ur Culture Indicated? NO. (NO) A 07/20/18 23:10 - VTE Documentation of Mechanical Device: Venous foot pump, device Consult Discharge Plan - Plan Referrals: Michi Figueroa [Primary Care Provider] -
[2018-07-24 07:22] LABS: Albumin 2.7 g/dL (3.5-5.7); Albumin/Globulin Ratio 1.2 (1.1-2.2); Bilirubin,Direct 0.2 mg/dL (0.0-0.2); Bilirubin,Indirect 0.4 mg/dL (0.0-1.2); Bilirubin,Total 0.6 mg/dL (0.3-1.0); Globulin 2.3 g/dL (2.4-3.5)
--- NOTE | 2018-07-24 07:42 | Event Note ---
Date of Encounter: 07/24/18 Time of Encounter: 07:41 - Cardiology Event Note Labs reviewed. AST and ALT normal. Per 's previous note, cardiology will sign off. Will arrange outpatient cardiology follow up.
--- NOTE | 2018-07-24 08:45 | Electrocardiograph Report ---
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
--- NOTE | 2018-07-24 08:46 | Electrocardiograph Report ---
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
[2018-07-24] MEDS: Aspirin Enteric Coated 81 MG Tablet PO SCH (11:14)
[2018-07-24] MEDS: Multivit/Ca/Min/Fe/FA 1 TAB TABLET PO SCH (11:15)
[2018-07-24] MEDS: Metoprolol XL (24 HR) Succ 25 MG TAB.ER.24H PO SCH (11:15)
[2018-07-24] MEDS: traMADol 50 MG TABLET PO PRN ×2 (11:15→17:07)
[2018-07-24] MEDS: Ascorbic Acid 500 MG TABLET PO SCH ×2 (11:21→17:07)
--- NOTE | 2018-07-24 21:56 | Internal Med Progress Note ---
Hospitalist Progress Note - Encounter Date of Encounter: 07/24/18 Time of Encounter: 19:00 - Subjective Interval History: SUBJECTIVE: He is dramatically better today. His confusion subsided. His fever responded to IV antibiotics. He continues to be hypoxic; on 2 L/min nasal cannula oxygen. Denies chest pain. He does have mild cough (started 2 days ago) but not wheezing. Denies abdominal pain, nausea and vomiting. He makes good amounts of urine. OBJECTIVE: Skin: Free of rash and discoloration. ENMT: Oral/pharyngeal mucosa is normal in appearance. Eyes: Sclera is white. There is no discharge from eyes. Respiratory: Normal breath sounds; no crackles or wheezes. CV: Heart is regular; no gallop or murmur. GI: Abdomen is soft and not tender. There is no palpable mass or visceromegaly. Neuro: There is no focal deficits. Chest x-ray shows patchy consolidation within the mid to lower lungs bilaterally , with probable pleural effusions. ASSESSMENT AND PLAN: The patient may has developed HCAP. He shows excellent response to IV vancomycin/IV Zosyn. He has mild acute hypoxic respiratory failure. Elevated troponin, likely due to NSTEMI. He has underlying coronary artery disease. He had PCI with opening/stenting of left circumflex the day before yesterday. He is on IV heparin, Toprol-XL, Lipitor and aspirin/Plavix. He is on subcutaneous Lovenox. Heart failure with reduced ejection fraction. 35-40%. Will continue Toprol-XL. Status post total left hip replacement. See notes from orthopedics. Hypertension. Under control. Toprol-XL. COPD. Clinically under control. He has moderate protein calorie malnutrition. We will continue supplemental feeding. See notes from dietary. - Exam Vitals: Temp Pulse Resp BP Pulse Ox 99.6 F 81 17 103/65 99 07/24/18 19:49 07/24/18 19:49 07/24/18 19:49 07/24/18 19:49 07/24/18 19:49 Exam: xx - Assessment and Plan (1) HCAP (healthcare-associated pneumonia) Current Visit: Yes Status: Acute (2) Acute respiratory failure with hypoxia Current Visit: Yes Status: Acute (3) Elevated troponin Current Visit: Yes Status: Acute (4) CAD (coronary artery disease) Current Visit: No Status: Chronic (5) HFrEF (heart failure with reduced ejection fraction) Current Visit: Yes Status: Acute (6) HTN (hypertension) Current Visit: No Status: Chronic (7) COPD (chronic obstructive pulmonary disease) Current Visit: No Status: Chronic (8) Status post total hip replacement, left Current Visit: No Status: Acute (9) Moderate protein-calorie malnutrition Current Visit: Yes Status: Acute - Time Spent with Patient Total time spent is greater than 50% in coordination of care (as documented) at patient's floor/unit and/or counseling patient: 25 - 35 minutes Plan of Care Discussed with: patient Internal Medicine: Result - Labs CBC & Chem 7: 07/25/18 07:25 07/25/18 07:25 Labs: Liver Function 07/24/18 Range/Units 06:24 Total Bilirubin 0.6 (0.3-1.0) mg/dL Direct Bilirubin 0.2 (0.0-0.2) mg/dL AST 37 (13-39) Units/L ALT 12 (7-52) Units/L Alkaline Phosphatase 43 (34-104) Units/L Albumin 2.7 L (3.5-5.7) g/dL - ABG Interpretation ABG results: PT/INR, D-dimer PT 13.8 Seconds (9.4-12.1) H 07/21/18 22:05 - VTE Documentation of Mechanical Device: Venous foot pump, device Consult Discharge Plan - Plan Referrals: Michi Figueroa [Primary Care Provider] - (Follow up with primary care provider ) (4) CAD (coronary artery disease) Qualifiers: Coronary Disease-Associated Artery/Lesion type: [place] artery [place] vs. transplanted heart: [place] heart Associated angina: without angina Qualified Code(s): I25.10 - Atherosclerotic heart disease of [place] coronary artery without angina pectoris (5) HFrEF (heart failure with reduced ejection fraction) Qualifiers: Heart failure chronicity: acute Qualified Code(s): I50.21 - Acute systolic ( congestive) heart failure (6) HTN (hypertension) Qualifiers: Hypertension type: essential hypertension Qualified Code(s): I10 - Essential (primary) hypertension (7) COPD (chronic obstructive pulmonary disease) Qualifiers: COPD type: chronic bronchitis Chronic bronchitis type: unspecified Qualified Code(s): J42 - Unspecified chronic bronchitis
[2018-07-25] MEDS: Piperacillin/Tazobactam 3.375 GM in 0.9 % Sodium Chloride Mini Bag 100 ML IVPB SCH ×3 (05:00→21:00)
[2018-07-25] MEDS: *HR* Enoxaparin 30 MG/0.3 ML SYRINGE SQ SCH ×2 (05:05→16:56)
--- NOTE | 2018-07-25 05:56 | Orthopedics Progress Note ---
Date of Encounter: 07/25/18 Time of Encounter: 05:55 - Assessment and Plan (1) CAD (coronary artery disease) Current Visit: No Status: Chronic Qualifiers: Coronary Disease-Associated Artery/Lesion type: [place] artery [place] vs. transplanted heart: [place] heart Associated angina: without angina Qualified Code(s): I25.10 - Atherosclerotic heart disease of [place] coronary artery without angina pectoris (2) COPD (chronic obstructive pulmonary disease) Current Visit: No Status: Chronic Qualifiers: COPD type: chronic bronchitis Chronic bronchitis type: unspecified Qualified Code(s): J42 - Unspecified chronic bronchitis (3) Chronic pain Current Visit: No Status: Chronic Qualifiers: Chronic pain type: other chronic pain Qualified Code(s): G89.29 - Other chronic pain (4) HLD (hyperlipidemia) Current Visit: No Status: Chronic Qualifiers: Hyperlipidemia type: unspecified Qualified Code(s): E78.5 - Hyperlipidemia , unspecified (5) HTN (hypertension) Current Visit: No Status: Chronic Qualifiers: Hypertension type: essential hypertension Qualified Code(s): I10 - Essential (primary) hypertension (6) Acute myocardial infarction Current Visit: Yes Status: Acute Qualifiers: Myocardial infarction type: unspecified Involved coronary artery: unspecified coronary artery Qualified Code(s): I21.9 - Acute myocardial infarction, unspecified (7) S/P coronary artery stent placement Current Visit: Yes Status: Acute (8) Acute respiratory failure with hypoxia Current Visit: Yes Status: Acute (9) Elevated troponin Current Visit: Yes Status: Acute (10) HCAP (healthcare-associated pneumonia) Current Visit: Yes Status: Acute (11) HFrEF (heart failure with reduced ejection fraction) Current Visit: Yes Status: Acute Qualifiers: Heart failure chronicity: acute Qualified Code(s): I50.21 - Acute systolic (congestive) heart failure (12) Moderate protein-calorie malnutrition Current Visit: Yes Status: Acute (13) Arthritis of left hip Current Visit: No Status: Chronic (14) Status post total hip replacement, left Current Visit: No Status: Acute (15) Acute blood loss anemia Current Visit: Yes Status: Acute Subjective Principal diagnosis: NSTEMI Interval history: Patient was seen this morning doing well without complaints. Afebrile vital signs stable. Operative extremity: Neurovascularly intact Dressing clean dry and intact [place] nontender Assessment and plan: Continue with postoperative care Patient resting comfortably plan as per hospitalist service since cardiology already signed off. Ortho stable for discharge today. Objective Vital signs: Vital Signs Temp Pulse Resp BP Pulse Ox 07/25/18 04:22 98.7 F 80 17 101/54 97 07/25/18 00:34 97.9 F 82 18 97/55 98 07/24/18 19:49 99.6 F 81 17 103/65 99 07/24/18 14:20 98.3 F 89 18 98/64 98 07/24/18 11:50 98.1 F 76 18 104/59 100 07/24/18 06:35 98.8 F 77 16 96/59 99 Intake and Output 07/24/18 07/24/18 07/25/18 15:59 23:59 07:59 Intake Total 100 / 100 100 / 100 Output Total 150 / 150 Balance 100 / 100 -150 / -150 100 / 100 Intake: IV Fluids 100 / 100 100 / 100 Zosyn 3.375 GM In 0.9 % Sodium 100 / 100 100 / 100 Chloride (Mini-Bag +) 100 ML @ 25 mls/hr IVPB Q8H [facility] Rx#: [id number] Output: Urine 150 / 150 Other: Meal Dinner Percent of Meal Consumed 30% # Voids 1 Weight 68.9 kg Patient Weight 07/25/18 23:59 Weight 68.9 kg - Labs CBC & BMP: 07/23/18 18:08 07/23/18 18:08 Labs: Abnormal lab results RBC 3.05 M/mcL (4.19-5.50) L 07/23/18 18:08 Hgb 9.6 g/dL (12.9-16.9) L 07/23/18 18:08 Hct 29.1 % (37.5-50.1) L 07/23/18 18:08 PT 13.8 Seconds (9.4-12.1) H 07/21/18 22:05 Heparin Anti-Xa, Unfract 0.28 IU/mL (0.30-0.70) L 07/22/18 05:53 BUN 31 mg/dL (8-23) H 07/23/18 18:08 BUN/Creatinine Ratio 38 (6-26) H 07/23/18 18:08 Glucose 138 mg/dL (70-105) H 07/23/18 18:08 Calcium 8.2 mg/dL (8.6-10.3) L 07/23/18 18:08 CK-MB (CK-2) 23.9 ug/L (0.0-5.0) H 07/21/18 08:36 Myoglobin 343 ng/mL (28-72) H 07/21/18 10:12 Troponin I 18.59 ng/mL (< 0.04) H* 07/23/18 18:08 Serum Total Protein 5.0 g/dL (6.4-8.9) L 07/24/18 06:24 Albumin 2.7 g/dL (3.5-5.7) L 07/24/18 06:24 Globulin 2.3 g/dL (2.4-3.5) L 07/24/18 06:24 Urine Ketones Trace mg/dL (Negative) H 07/20/18 23:10 Ur Leukocyte Esterase Trace (Negative) H 07/20/18 23:10 Urine Microscopic RBC 5-15 per hpf (0-3) H 07/20/18 23:10 Urine Microscopic WBC 3-5 per hpf (0-3) H 07/20/18 23:10 Ur Squamous Epith Cells Many per lpf (None-Few) H 07/20/18 23:10 Ur Culture Indicated? NO. (NO) A 07/20/18 23:10 - VTE Documentation of Mechanical Device: Venous foot pump, device Consult Discharge Plan - Plan Referrals: Michi Figueroa [Primary Care Provider] - (Follow up with primary care provider )
[2018-07-25 07:53] LABS: Basophils % 0.3 %; Eosinophils # 0.3 K/mcL (0.0-0.6); Eosinophils % 5.7 %; Hematocrit 28.3 % (37.5-50.1); Hemoglobin 9.2 g/dL (12.9-16.9); Immature Granulocytes % 0.2 % (0-4); Lymphocytes # 1.2 K/mcL (0.6-4.6); Lymphocytes % 20.2 %; Mean Corpuscular HGB Conc 32.5 g/dL (31.6-35.5); Mean Corpuscular Hemoglobin 31.4 pg (28.0-33.3); Mean Corpuscular Volume 96.6 fL (83.0-100.0); Mean Platelet Volume 11.5 fL (9.4-12.4); Monocytes # 0.5 K/mcL (0.0-1.3); Monocytes % 8.6 %; Neutrophils # 3.9 K/mcL (1.6-8.9); Platelet Count 165 K/mcL (140-400); Red Blood Count 2.93 M/mcL (4.19-5.50)
[2018-07-25 09:19] LABS: BUN/Creatinine Ratio 39 (6-26); Blood Urea Nitrogen 27 mg/dL (8-23); Calcium 7.9 mg/dL (8.6-10.3); Carbon Dioxide 25 mEq/L (23-29); Chloride 103 mEq/L (98-107); Glucose 115 mg/dL (70-105); Magnesium 1.9 mg/dL (1.6-2.6); Osmolality,Calculated 286 (280-300); Potassium 3.5 mEq/L (3.5-5.1); Sodium 135 mEq/L (136-145); eGFR For Non-African Americans > 60 (> 60)
[2018-07-25] MEDS: Metoprolol XL (24 HR) Succ 25 MG TAB.ER.24H PO SCH (10:28)
[2018-07-25] MEDS: Ascorbic Acid 500 MG TABLET PO SCH ×2 (10:42→16:56)
[2018-07-25] MEDS: Aspirin Enteric Coated 81 MG Tablet PO SCH (10:42)
[2018-07-25] MEDS: traMADol 50 MG TABLET PO PRN (10:42)
[2018-07-25] MEDS: Multivit/Ca/Min/Fe/FA 1 TAB TABLET PO SCH (10:42)
[2018-07-25] MEDS: Acetaminophen 325 MG TABLET PO PRN (16:56)
[2018-07-25] MEDS ORDERED: Levalbuterol Neb 1.25 MG/3 ML IH PRN (17:52)
--- NOTE | 2018-07-25 23:26 | Internal Med Progress Note ---
Hospitalist Progress Note - Encounter Date of Encounter: 07/25/18 Time of Encounter: 19:00 - Subjective Interval History: SUBJECTIVE: The patient feels weak. He does have mild cough but not wheezing. Denies chest pain. Denies abdominal pain, nausea and vomiting. He makes good amounts of urine. His fever subsided. OBJECTIVE: Skin: Free of rash and discoloration. ENMT: Oral/pharyngeal mucosa is normal in appearance. Eyes: Sclera is white. There is no discharge from eyes. Respiratory: Normal breath sounds; no crackles or wheezes. CV: Heart is regular; no gallop or murmur. GI: Abdomen is soft and not tender. There is no palpable mass or visceromegaly. Neuro: There is no focal deficits. Chest x-ray from 07/23/18 shows patchy consolidation within the mid to lower lungs bilaterally, with probable pleural effusions. ASSESSMENT AND PLAN: HCAP. He shows excellent response to IV vancomycin/IV Zosyn. He is recovering from mild acute hypoxic respiratory failure. Elevated troponin, likely due to NSTEMI. He has underlying coronary artery disease. He had PCI with opening/stenting of left circumflex on 07/22. He is on IV heparin, Toprol-XL, Lipitor and aspirin/Plavix. He is on subcutaneous Lovenox. Heart failure with reduced ejection fraction. 35-40%. Will continue Toprol-XL. Status post total left hip replacement. See notes from orthopedics. The patient needs ECF (has been accepted). Hypertension. Under control. Toprol-XL. COPD. Clinically under control. He has moderate protein calorie malnutrition. He got supplemental nutrition. See notes from dietary. Disposition: We will insert power glide IV access. Then, we will send him to ECF with IV antibiotics for the next 4 to 5 days. - Exam Vitals: Temp Pulse Resp BP Pulse Ox 98.3 F 68 18 97/42 97 07/25/18 20:39 07/25/18 20:39 07/25/18 20:39 07/25/18 20:39 07/25/18 20:39 Exam: xx - Assessment and Plan (1) HCAP (healthcare-associated pneumonia) Current Visit: Yes Status: Acute (2) Acute respiratory failure with hypoxia Current Visit: Yes Status: Acute (3) Elevated troponin Current Visit: Yes Status: Acute (4) CAD (coronary artery disease) Current Visit: No Status: Chronic (5) HFrEF (heart failure with reduced ejection fraction) Current Visit: Yes Status: Acute (6) HTN (hypertension) Current Visit: No Status: Chronic (7) COPD (chronic obstructive pulmonary disease) Current Visit: No Status: Chronic (8) Status post total hip replacement, left Current Visit: No Status: Acute (9) Moderate protein-calorie malnutrition Current Visit: Yes Status: Acute - Time Spent with Patient Total time spent is greater than 50% in coordination of care (as documented) at patient's floor/unit and/or counseling patient: 25 - 35 minutes Plan of Care Discussed with: patient (and family..) Internal Medicine: Result - Labs CBC & Chem 7: 07/25/18 07:25 07/25/18 07:25 Labs: Short CBC 07/25/18 Range/Units 07:25 WBC 6.0 (4.3-11.1) K/mcL Hgb 9.2 L (12.9-16.9) g/dL Hct 28.3 L (37.5-50.1) % Plt Count 165 (140-400) K/mcL Neutrophils # 3.9 (1.6-8.9) K/mcL BMP 07/25/18 07:25 Sodium 135 L Potassium 3.5 Chloride 103 Carbon Dioxide 25 BUN 27 H Creatinine 0.69 L Glucose 115 H Calcium 7.9 L - ABG Interpretation ABG results: PT/INR, D-dimer PT 13.8 Seconds (9.4-12.1) H 07/21/18 22:05 - Impressions Impressions Chest X-Ray 07/25/18 06:32 IMPRESSION: Patchy airspace opacities bilaterally, may be related to pulmonary edema versus pneumonia, new since the prior study. D/ / Neville Chandler MD / Neville Chandler MD Interpreting Provider: Neville Chandler MD - VTE Documentation of Mechanical Device: Venous foot pump, device Consult Discharge Plan - Plan Referrals: Michi Figueroa [Primary Care Provider] - (Follow up with primary care provider ) (4) CAD (coronary artery disease) Qualifiers: Coronary Disease-Associated Artery/Lesion type: [place] artery [place] vs. transplanted heart: [place] heart Associated angina: without angina Qualified Code(s): I25.10 - Atherosclerotic heart disease of [place] coronary artery without angina pectoris (5) HFrEF (heart failure with reduced ejection fraction) Qualifiers: Heart failure chronicity: acute Qualified Code(s): I50.21 - Acute systolic ( congestive) heart failure (6) HTN (hypertension) Qualifiers: Hypertension type: essential hypertension Qualified Code(s): I10 - Essential (primary) hypertension (7) COPD (chronic obstructive pulmonary disease) Qualifiers: COPD type: chronic bronchitis Chronic bronchitis type: unspecified Qualified Code(s): J42 - Unspecified chronic bronchitis
[2018-07-26] MEDS ORDERED: 0.9 % Sodium Chloride 250 ML ONE (00:44)
[2018-07-26] MEDS: Piperacillin/Tazobactam 3.375 GM in 0.9 % Sodium Chloride Mini Bag 100 ML IVPB SCH ×3 (05:00→20:03)
[2018-07-26] MEDS: *HR* Enoxaparin 30 MG/0.3 ML SYRINGE SQ SCH ×2 (05:03→18:47)
[2018-07-26] MEDS: Metoprolol XL (24 HR) Succ 25 MG TAB.ER.24H PO SCH (08:49)
[2018-07-26] MEDS: Multivit/Ca/Min/Fe/FA 1 TAB TABLET PO SCH (08:49)
[2018-07-26] MEDS: Ascorbic Acid 500 MG TABLET PO SCH ×2 (08:49→18:47)
[2018-07-26] MEDS: Aspirin Enteric Coated 81 MG Tablet PO SCH (08:49)
[2018-07-26 12:48] LABS: Basophils % 0.3 %; Eosinophils # 0.3 K/mcL (0.0-0.6); Eosinophils % 4.1 %; Hematocrit 30.1 % (37.5-50.1); Hemoglobin 9.8 g/dL (12.9-16.9); Immature Granulocytes % 0.4 % (0-4); Lymphocytes # 0.9 K/mcL (0.6-4.6); Lymphocytes % 13.5 %; Mean Corpuscular HGB Conc 32.6 g/dL (31.6-35.5); Mean Corpuscular Hemoglobin 31.6 pg (28.0-33.3); Mean Corpuscular Volume 97.1 fL (83.0-100.0); Mean Platelet Volume 11.4 fL (9.4-12.4); Monocytes # 0.5 K/mcL (0.0-1.3); Monocytes % 7.3 %; Neutrophils # 5.1 K/mcL (1.6-8.9); Platelet Count 224 K/mcL (140-400); Red Cell Distribution Width 12.8 % (11.5-14.5); Segmented Neutrophils % 74.4 %
[2018-07-26 13:10] LABS: BUN/Creatinine Ratio 41 (6-26); Blood Urea Nitrogen 25 mg/dL (8-23); Calcium 8.2 mg/dL (8.6-10.3); Carbon Dioxide 26 mEq/L (23-29); Chloride 105 mEq/L (98-107); Glucose 141 mg/dL (70-105); Osmolality,Calculated 291 (280-300); Potassium 3.6 mEq/L (3.5-5.1); Sodium 137 mEq/L (136-145); eGFR For Non-African Americans > 60 (> 60)
--- NOTE | 2018-07-26 13:24 | Orthopedics Progress Note ---
Date of Encounter: 07/26/18 Time of Encounter: 13:23 - Assessment and Plan (1) Arthritis of left hip Current Visit: No Status: Chronic (2) Status post total hip replacement, left Current Visit: No Status: Acute (3) COPD (chronic obstructive pulmonary disease) Current Visit: No Status: Chronic Qualifiers: COPD type: chronic bronchitis Chronic bronchitis type: unspecified Qualified Code(s): J42 - Unspecified chronic bronchitis (4) HLD (hyperlipidemia) Current Visit: No Status: Chronic Qualifiers: Hyperlipidemia type: unspecified Qualified Code(s): E78.5 - Hyperlipidemia , unspecified (5) HTN (hypertension) Current Visit: No Status: Chronic Qualifiers: Hypertension type: essential hypertension Qualified Code(s): I10 - Essential (primary) hypertension (6) CAD (coronary artery disease) Current Visit: No Status: Chronic Qualifiers: Coronary Disease-Associated Artery/Lesion type: [place] artery [place] vs. transplanted heart: [place] heart Associated angina: without angina Qualified Code(s): I25.10 - Atherosclerotic heart disease of [place] coronary artery without angina pectoris (7) Chronic pain Current Visit: No Status: Chronic Qualifiers: Chronic pain type: other chronic pain Qualified Code(s): G89.29 - Other chronic pain (8) Acute blood loss anemia Current Visit: Yes Status: Acute (9) Acute myocardial infarction Current Visit: Yes Status: Acute Qualifiers: Myocardial infarction type: unspecified Involved coronary artery: unspecified coronary artery Qualified Code(s): I21.9 - Acute myocardial infarction, unspecified (10) Acute respiratory failure with hypoxia Current Visit: Yes Status: Resolved (11) HCAP (healthcare-associated pneumonia) Current Visit: Yes Status: Acute (12) HFrEF (heart failure with reduced ejection fraction) Current Visit: Yes Status: Acute Qualifiers: Heart failure chronicity: acute Qualified Code(s): I50.21 - Acute systolic (congestive) heart failure (13) Moderate protein-calorie malnutrition Current Visit: Yes Status: Acute (14) S/P coronary artery stent placement Current Visit: Yes Status: Acute Subjective Principal diagnosis: s/p Left THR Interval history: See discharge summary. Patient seen and evaluated today. Objective Vital signs: Vital Signs Temp Pulse Resp BP Pulse Ox 07/26/18 07:40 98.5 F 72 16 102/51 98 07/26/18 05:46 98.5 F 84 16 96/60 99 07/26/18 00:42 97.6 F 83 20 105/66 97 07/25/18 20:39 98.3 F 68 18 97/42 97 07/25/18 15:15 97.7 F 88 16 103/58 100 Intake and Output 07/25/18 07/26/18 07/26/18 23:59 07:59 15:59 Intake Total 0 / 0 100 / 100 100 / 100 Output Total 0 / 0 0 / 0 Balance 0 / 0 100 / 100 100 / 100 Intake: IV Fluids 100 / 100 100 / 100 Zosyn 3.375 GM In 0.9 % Sodium 100 / 100 100 / 100 Chloride (Mini-Bag +) 100 ML @ 25 mls/hr IVPB Q8H [facility] Rx#: [id number] Oral 0 / 0 0 / 0 Output: Urine 0 / 0 0 / 0 - Labs CBC & BMP: 07/26/18 12:10 07/26/18 12:10 Labs: Abnormal lab results RBC 3.10 M/mcL (4.19-5.50) L 07/26/18 12:10 Hgb 9.8 g/dL (12.9-16.9) L 07/26/18 12:10 Hct 30.1 % (37.5-50.1) L 07/26/18 12:10 PT 13.8 Seconds (9.4-12.1) H 07/21/18 22:05 Heparin Anti-Xa, Unfract 0.28 IU/mL (0.30-0.70) L 07/22/18 05:53 BUN 25 mg/dL (8-23) H 07/26/18 12:10 Creatinine 0.61 mg/dL (0.70-1.30) L 07/26/18 12:10 BUN/Creatinine Ratio 41 (6-26) H 07/26/18 12:10 Glucose 141 mg/dL (70-105) H 07/26/18 12:10 Calcium 8.2 mg/dL (8.6-10.3) L 07/26/18 12:10 CK-MB (CK-2) 23.9 ug/L (0.0-5.0) H 07/21/18 08:36 Myoglobin 343 ng/mL (28-72) H 07/21/18 10:12 Troponin I 18.59 ng/mL (< 0.04) H* 07/23/18 18:08 Serum Total Protein 5.0 g/dL (6.4-8.9) L 07/24/18 06:24 Albumin 2.7 g/dL (3.5-5.7) L 07/24/18 06:24 Globulin 2.3 g/dL (2.4-3.5) L 07/24/18 06:24 Urine Ketones Trace mg/dL (Negative) H 07/20/18 23:10 Ur Leukocyte Esterase Trace (Negative) H 07/20/18 23:10 Urine Microscopic RBC 5-15 per hpf (0-3) H 07/20/18 23:10 Urine Microscopic WBC 3-5 per hpf (0-3) H 07/20/18 23:10 Ur Squamous Epith Cells Many per lpf (None-Few) H 07/20/18 23:10 Ur Culture Indicated? NO. (NO) A 07/20/18 23:10 - VTE Documentation of Mechanical Device: Venous foot pump, device Consult Discharge Plan - Plan Referrals: Michi Figueroa [Primary Care Provider] - (Follow up with primary care provider ) Prescriptions: Enoxaparin [Lovenox] 30 mg SQ Q12HR 7 Days #14 syringe Vancomycin [Vancocin] 1,000 mg IV Q12HR 7 Days #14 vial Duevslbquign-Mbgr-Whzsrjbn,Iso [Zosyn 3.375 gm/50 ml Galaxy] 3.375 gm IV Q8H 7 Days #21 froz.piggy Tramadol HCl [Ultram] 50 mg PO QID PRN 7 Days #28 tab PRN Reason: Severe Pain
[2018-07-26] MEDS: traMADol 50 MG TABLET PO PRN (18:47)
--- NOTE | 2018-07-27 00:37 | Internal Med Progress Note ---
Hospitalist Progress Note - Encounter Date of Encounter: 07/26/18 Time of Encounter: 16:00 - Exam Vitals: Temp Pulse Resp BP Pulse Ox 97.6 F 88 17 156/74 98 07/26/18 20:58 07/26/18 20:58 07/26/18 20:58 07/26/18 20:58 07/26/18 20:58 Exam: ee - Assessment and Plan (1) HCAP (healthcare-associated pneumonia) Current Visit: Yes Status: Acute (2) Acute respiratory failure with hypoxia Current Visit: Yes Status: Resolved (3) Elevated troponin Current Visit: Yes Status: Acute (4) CAD (coronary artery disease) Current Visit: No Status: Chronic (5) HFrEF (heart failure with reduced ejection fraction) Current Visit: Yes Status: Acute (6) HTN (hypertension) Current Visit: No Status: Chronic (7) COPD (chronic obstructive pulmonary disease) Current Visit: No Status: Chronic (8) Status post total hip replacement, left Current Visit: No Status: Acute (9) Moderate protein-calorie malnutrition Current Visit: Yes Status: Acute - Time Spent with Patient Total time spent is greater than 50% in coordination of care (as documented) at patient's floor/unit and/or counseling patient: 25 - 35 minutes Plan of Care Discussed with: patient (and family) Internal Medicine: Result - Labs CBC & Chem 7: 07/26/18 12:10 07/26/18 12:10 Labs: Short CBC 07/26/18 Range/Units 12:10 WBC 6.9 (4.3-11.1) K/mcL Hgb 9.8 L (12.9-16.9) g/dL Hct 30.1 L (37.5-50.1) % Plt Count 224 (140-400) K/mcL Neutrophils # 5.1 (1.6-8.9) K/mcL BMP 07/26/18 12:10 Sodium 137 Potassium 3.6 Chloride 105 Carbon Dioxide 26 BUN 25 H Creatinine 0.61 L Glucose 141 H Calcium 8.2 L - ABG Interpretation ABG results: PT/INR, D-dimer PT 13.8 Seconds (9.4-12.1) H 07/21/18 22:05 - VTE Documentation of Mechanical Device: Venous foot pump, device Consult Discharge Plan - Plan Referrals: Michi Figueroa [Primary Care Provider] - (Follow up with primary care provider ) Prescriptions: Enoxaparin [Lovenox] 30 mg SQ Q12HR 7 Days #14 syringe Vancomycin [Vancocin] 1,000 mg IV Q12HR 7 Days #14 vial Ssblflhjxdnm-Ahgi-Kmiqavhn,Iso [Zosyn 3.375 gm/50 ml Galaxy] 3.375 gm IV Q8H 7 Days #21 froz.piggy Tramadol HCl [Ultram] 50 mg PO QID PRN 7 Days #28 tab PRN Reason: Severe Pain (4) CAD (coronary artery disease) Qualifiers: Coronary Disease-Associated Artery/Lesion type: [place] artery [place] vs. transplanted heart: [place] heart Associated angina: without angina Qualified Code(s): I25.10 - Atherosclerotic heart disease of [place] coronary artery without angina pectoris (5) HFrEF (heart failure with reduced ejection fraction) Qualifiers: Heart failure chronicity: acute Qualified Code(s): I50.21 - Acute systolic ( congestive) heart failure (6) HTN (hypertension) Qualifiers: Hypertension type: essential hypertension Qualified Code(s): I10 - Essential (primary) hypertension (7) COPD (chronic obstructive pulmonary disease) Qualifiers: COPD type: chronic bronchitis Chronic bronchitis type: unspecified Qualified Code(s): J42 - Unspecified chronic bronchitis
[2018-07-27] MEDS: Piperacillin/Tazobactam 3.375 GM in 0.9 % Sodium Chloride Mini Bag 100 ML IVPB SCH (04:59)
[2018-07-27] MEDS: *HR* Enoxaparin 30 MG/0.3 ML SYRINGE SQ SCH (05:02)
[2018-07-27 07:39] VITALS: BP 106/62
[2018-07-27] MEDS: Ascorbic Acid 500 MG TABLET PO SCH (08:31)
[2018-07-27] MEDS: Aspirin Enteric Coated 81 MG Tablet PO SCH (08:31)
[2018-07-27] MEDS: Multivit/Ca/Min/Fe/FA 1 TAB TABLET PO SCH (08:31)
[2018-07-27] MEDS: Metoprolol XL (24 HR) Succ 25 MG TAB.ER.24H PO SCH (08:32)
[2018-07-27] MEDS ORDERED: Aminoglycoside Consult 1 EACH MC ONE (10:42)
== END 2018-07-27 10:43 | DRG 469 ==
LOC: EDBD → SAMDAY 12:06 → 3NENU 17:56 → SUATTDRO 17:56 → 2ANU 07-22 14:12
PROVIDERS: ADMIT Orthopaedic Surgery; ATTEND Internal Medicine